=== PATIENT | female | born 1985 ===

== ENCOUNTER 2024-11-27 11:52 | Outpatient (CLI) | payer MEDICARE, MEDICAID, SELFPAY ==
--- OUTSIDE RECORDS SUMMARY | 2024-11-27 13:51 | XMS_ITS | Referral Summary ---
Author Organization [facility] Address [address] [place] [address] Care Team Providers Care Supervising Architect Name Role Phone Jaylon Boudreaux MD Unavailable [phone] Jaylon Boudreaux MD Primary Care Provider Encounters Date Type Department Care Team Description 10/18/2024 Orders Only [facility] Cardiology [address] [place] [address] Abdirahman Lindsay MD PhD 10/12/2024 2:00 PM [employer] Office Visit [facility] Dermatology [facility] [facility] [address] [place] [address] Rashawn Schmitz MD PhD Hidradenitis suppurativa (Primary Dx); Boils; Other eczema; Seborrheic dermatitis; Acne vulgaris from Last 3 Months Allergies No known active allergies Medications amLODIPine (NORVASC) 10 mg tablet Take 1 tablet (10 mg total) by mouth daily 30 tablet 0 Active Additional Information Patient not taking.Reported on 03/23/2024 lisinopriL (PRINIVIL,ZESTRI L) 40 mg tablet Take 1 tablet (40 mg total) by mouth daily 30 tablet 0 Active spironolactone (ALDACTONE) 25 mg tablet Take 1 tablet (25 mg total) by mouth daily 30 tablet 0 Active furosemide (LASIX) 40 mg tablet Take 1 tablet (40 mg total) by mouth 2 (two) times a day 60 tablet 11 0 Active clobetasoL (TEMOVATE) 0.05 % external solutionIndicati ons:Dermatosis of the Scalp Apply topically 2 (two) times a day 50 mL 0 Active Additional Information Patient not taking.Reported on 03/23/2024 hydrALAZINE (APRESOLINE) 25 mg tablet Take 1 tablet (25 mg total) by mouth 3 (three) times a day 90 tablet 0 Active Additional Information Patient taking differently: 50 mgoral2 times daily, Reported on 09/23/2023 chlorthalidone 25 mg tablet Take 1 tablet (25 mg total) by mouth daily 30 tablet 11 0 Active metFORMIN XR (GLUCOPHAGE XR) 500 mg 24 hr tablet Take by mouth nightly 2 Active ciprofloxacin (CILOXAN) 0.3 % ophthalmic solution Administer 1 drop into the left eye every 2 (two) hours Administer 1 drop, every 2 hours, while awake, for 2 days. Then 1 drop, every 4 hours, while awake, for the next 5 days. 5 mL 2 Active Additional Information Patient not taking.Reported on 03/23/2024 ibuprofen (ADVIL,MOTRIN) 600 mg tablet Take 1 tablet (600 mg total) by mouth 3 (three) times a day as needed for pain (migraine) 20 tablet 2 Active Additional Information Patient not taking.Reported on 03/23/2024 norethindrone (AYGESTIN) 5 mg tablet Take 1 tablet (5 mg total) by mouth daily Active pimecrolimus (ELIDEL) 1 % creamIndications :Steroid acne Apply topically daily (face). 30 g 6 4 Active Additional Information Patient not taking.Reported on 03/23/2024 clindamycin (CLEOCIN T) 1 % external solutionIndicati ons:Hidradenitis suppurativa Use on the back, chest, under the arms and in the groin 1-2 times daily. Ok to use on the face 60 mL 6 4 Active Additional Information Patient not taking.Reported on 03/23/2024 metoprolol XL (TOPROL-XL) 200 mg extended release tablet Take 0.5 tablets (100 mg total) by mouth 2 (two) times a day 30 tablet 11 4 Active Entresto 49-51 mg tablet 4 Active secukinumab (Cosentyx UnoReady Pen) 300 mg/2 mL (150 mg/mL) pen injector subcutaneous syringeIndicatio ns:Hidradenitis Suppurativa Inject 2 mL (300 mg total) under the skin every 28 (twenty-eight) days 2 mL 6 4 Active doxycycline (doxycycline hyclate) 100 mg capsuleIndicatio ns:Hidradenitis suppurativa Take 1 tablet/capsule (100 mg total) by mouth 2 (two) times a day Take with a full meal and a glass of water. 60 capsule 6 5 Active clindamycin (Cleocin T) 1 % lotionIndication s:Hidradenitis suppurativa,Acne vulgaris Apply topically every morning Face and armpits 60 mL 11 5 Active triamcinolone (KENALOG) 0.1 % ointmentIndicati ons:Other eczema Apply topically 2 (two) times a day as needed (arm rash) 60 g 5 Active Active Problems Problem Noted Date Diagnosed Date VT (ventricular tachycardia) 09/23/2023 Primary hypertension 09/23/2023 Supraventricular tachycardia, paroxysmal 022 NICM (nonischemic cardiomyopathy) 09/26/2020 Sinus tachycardia 09/26/2020 Acute on chronic heart failu re with reduced ejection fraction and diastolic dysfunction 05/29/2020 Social History Tobacco Use Types Packs/Day Years Used Date Smoking Tobacco: Former Smokeless Tobacco: Never Comments No Sex and Gender Information Value Date Recorded Sex Assigned at Not on file Legal Sex Female 8:22 PM [employer] Gender Identity Not on file Sexual Orientation Not on file Last Filed Vital Signs Vital Sign Reading Time Taken Comments Blood Pressure 136/85 03/23/2024 8:20 AM CDT Pulse 88 03/23/2024 8:20 AM CDT Temperature 37 C (98.6 F) 02/19/2023 6:59 PM CDT Respiratory Rate 20 02/19/2023 9:20 PM CDT Oxygen Saturation 99% 03/23/2024 8:20 AM CDT Inhaled Oxygen Concentration - - Weight 150.3 kg (331 lb 6.4 oz) 03/23/2024 8:20 AM CDT Height 170.2 cm (5' 7 ) 03/23/2024 8:20 AM CDT Body Mass Index 51.9 03/23/2024 8:20 AM CDT Plan of Treatment Not on file Medical Devices Implanted Type Area Information Systems Analyst Device Identifier Shelf Expiration Date Model / Serial / Lot [employer] D152 Dynagen Enduralife Easyview Hf Perspectiv 5.37x7.68cm 2 Chamber - [id number] - [id number] Implanted:Qty: 1 on 05/31/2020 by Christ Phillips MD at [facility] ICD Left: Heart [employer] 12/19/2020 D152 / [id number] / [employer] 0672 [place] 4-Front 59cm Active Fixation Lead Icd - [id number] - [id number] Implanted:Qty: 1 on 05/31/2020 by Christ Phillips MD at [facility] Lead Left: Heart [employer] 03/26/2022 0672 / [id number] / [employer] 4470 Fin[place] Ii Sterox Ez 1.7mm 52cm Bipolar Active Fixation Screw - [id number] - [id number] Implanted:Qty: 1 on 05/31/2020 by Christ Phillips MD at [facility] Lead Left: Heart [employer] 03/15/2022 4470 / [id number] / Procedures Procedure Name Priority Date/Time Associated Diagnosis Comments DEVICE CHECK - REMOTE Routine 10/18/2024 4:22 PM [employer] EGFR STAT 02/19/2023 7:09 PM CDT HEPATITIS PANEL, ACUTE Routine 05/16/2020 8:59 AM CDT HEMOGLOBIN A1C Routine 05/15/2020 7:52 AM CDT TNI WITH LIPID PANEL Routine 04/02/2020 12:49 AM CDT from Last 3 Months or Most Recently Relevant to Health Maintenance Results * DEVICE CHECK - REMOTE (10/18/2024 4:22 PM [employer]) Anatomical Region Laterality Modality Other 10/18/2024 4:22 PM [employer]ER Narrative 11/10/2024 7:12 AM [employer] Interpretation Summary: Battery and Leads (BL) Normal parameters noted on battery and lead(s) --- 8.5 years remaining (this is an estimate based on prior usage) Presenting Rhythm (CT) Atrial Sensing-Ventricular Sensing (-VS) --- rate 85-90 Arrhythmic events (AE) Atrial High-Rate Episode(s) identified --- 1 non-sustained AT episode Nonsustained VT event(s) identified --- One NS-VT episode. Duration: 1 seconds. Rate: 235 Transmission Information (TI) Device Summary Report Procedure Note Abdirahman Lindsay MD PhD - 11/10/2024 Interpretation Summary: Battery and Leads (BL) Normal parameters noted on battery and lead(s) --- 8.5 years remaining(this is an estimate based on prior usage) Presenting Rhythm (CT) Atrial Sensing-Ventricular Sensing (-VS) --- rate 85-90 Arrhythmic events (AE) Atrial High-Rate Episode(s) identified --- 1 non-sustained AT episode Nonsustained VT event(s) identified --- One NS-VT episode. Duration: 1seconds. Rate: 235 Transmission Information (TI) Device Summary Report Abdirahman Lindsay MD PhD [facility] C[facility]IAC SERVICES PROCEDURES Final Result * eGFR (02/19/2023 7:09 PM CDT) eGFR 66 mL/min/1. 73 m2 RONNIE MORA Comment: Interpretive Data Reference Interval Normal >/= 90 mL/min/1.73m2 Mildly decreased* 60 - 89 mL/min/1.73m2 Mildly to moderately decreased 45 - 59 mL/min/1.73m2 Moderately to severely decreased 30 - 44 mL/min/1.73m2 Severely decreased 15 - 29 mL/min/1.73m2 Kidney Failure < 15 mL/min/1.73m2 *Relative to young adult level Estimated glomerular filtration rate is determined by the 2020 CKD-EPI equation recommended by the National Kidney Foundation (A Unifying Approach to GFR Estimation: Recommendations of the NKF-ASK Task Force on Reassessing the Inclusion of Race in Diagnosing Kidney Disease, JASN 202). The CKD-EPI equation should not be used for patients with unstable renal function and has not been validated in children and those over 70. Current interpretive data was last reviewed 2021. Blood 02/19/2023 7:09 PM CDT 02/19/2023 7:12 PM CDT us Felton Frankel II, MD LAB BLOOD ORDERABLES Frannie macias Result RONNIE [address] [facility] Department [place] [address] * Hepatitis panel, acute (05/16/2020 8:59 AM CDT) HepBsAg NONREACT NONREACTIVE [facility][NOTE 3] Comment: Siemens CentaurXP using TAVO (chemiluminescent immunoassay) technology. NONREACTIVE: IgM antibodies to Hepatitis B Surface antigen not detected. REACTIVE: IgM antibodies to Hepatitis B Surface antigen detected. Reactive results will be confirmed by neutralization testing. HBsAb qn <3.10 mIU/mL [facility][NOTE 3] Comment: Siemens CentaurXP using TAVO (chemiluminescent immunoassay) technology. 9.99 IU/L or less.....NONREACTIVE: IgM antibodies to Hepatitis B Surface antibody are not detected. 10.00 IU/L or greater..REACTIVE: IgM antibodies to Hepatitis B Surface antibody are detected. Hep B core IgM NONREACT NONREACTIVE [facility] Comment: Siemens CentaurXP using TAVO (chemiluminescent immunoassay) technology. NONREACTIVE: IgM antibodies to Hepatitis B Core antigen not detected. EQUIVOCAL: IgM antibodies to Hepatitis B Core antigen may or may not be present. Obtain a new specimen and retest. REACTIVE: IgM antibodies to Hepatitis B Core antigen detected. Hep A IgM NONREACT NONREACTIVE [facility][NOTE 3] Comment: Siemens CentaurXP using TAVO (chemiluminescent immunoassay) technology. NONREACTIVE: IgM antibodies to Hepatitis A not detected. This does not exclude possibility of exposure to Hepatitis A or early acute infection. EQUIVOCAL:IgM antibodies to Hepatitis A may or may not be present. Suggest recollection and retest. REACTIVE: Antibodies to Hepatitis A detected. Hep C Ab NONREACT NONREACTIVE [facility][NOTE 3] Comment: Siemens [employer]XP using TAVO (chemiluminescent immunoassay) technology. NONREACTIVE: Antibodies to Hepatitis C not detected. This does not exclude early acute Hepatitis C infection, possibility of exposure to Hepatitis C, antibodies below detection limit, or to lack of antibody reactivity to the antigen used in this assay. EQUIVOCAL: Antibodies to Hepatitis C may or may not be present. Sample to be confirmed by real-time PCR method. REACTIVE: Antibodies to Hepatitis C detected.Sample to be confirmed by real-time PCR method. 05/16/2020 8:59 AM CDT 05/16/2020 9:13 AM CDT Narrative Resulting Agency Comment IN René Castro MD LAB MICROBIOLOGY - GENERAL O RDERABLES Final Result Performing Organization Address City/[facility]/ZIP Co de Phone Number [address] [phone] * (ABNORMAL) Hemoglobin A1c (05/15/2020 7:52 AM CDT) Hemoglobin A1c % 6.0(H) 4.0 - 5.6 % [facility][NOTE 3] Comment: ADA 2016 GUIDELINES: Initial Diagnostic Criteria HbA1c Result: Interpretation: <5.7% Normal 5.7-6.4% At risk for diabetes mellitus >=6.5% Consistent with diabetes mellitus Diabetes monitoring Target value (ADA Recommended) <7% 05/15/2020 7:52 AM CDT 05/15/2020 8:07 AM CDT Narrative Resulting Agency Comment DEBBIE René Castro MD LAB BLOOD ORDERABLES Final R esult Performing Organization Address City/[facility]/ZIP Co de Phone Number [address] [phone] * (ABNORMAL) TNI with LIPID PANEL (04/02/2020 12:49 AM CDT) Troponin I 1.690(HH) 0.000 - 0.300 ng/mL [facility][NOTE 3] Comment: CRITICAL VALUE CALLED and REPEATED. at:0117 04/02/20 by:Lien Nayak to:CASSIDY [id number] Reference using [place] Chemiluminescence Consistent with DE: Clinical and Laboratory correlation is recommended. Triglycerides 75 0 - 149 mg/dL [facility][NOTE 3] Comment: National Lipid Association/NCEP Guidelines: Normal < 150 mg/dL Borderline high 150-199 mg/dL High 200-499 mg/dL Very High >=500 mg/dL Cholesterol 115 0 - 199 mg/dL [facility][NOTE 3] Comment: National Lipid Association/NCEP Guidelines: Desirable < 200 mg/dL Borderline high: 200-239 mg/dL High Risk: >=240 mg/dL HDL Cholesterol 33 mg/dL MARI BETINA [facility] Comment: Reference Ranges: Males: >=40 mg/dL Females: >=50 mg/dL LDL Cholesterol, Calc 67 0 - 129 mg/dL [facility][NOTE 3] Comment: National Lipid Association/NCEP Guidelines: Optimal < 100 mg/dL Near Optimal 100-129 mg/dL Borderline high 130-159 mg/dL High >=160 mg/dL Cholesterol/HDL Ratio 3.5 [facility][NOTE 3] Comment: Optimal < 3.5:1 High > 5:1 04/02/2020 12:4 9 AM CDT 04/02/2020 12:52 AM CDT Narrative Resulting Agency Comment ER Rob Real DO LAB BLOOD ORDERABLES Final Res ult [facility][NOTE 3] [address] [phone] from Last 3 Months or Most Recently Relevant to Health Maintenance Insurance [facility] MEDICARE ADVANTAGE Advance Directives For more information, please contact: [phone] * Full Code (Latest Code Status on File) Date Activated Date Inactivated Comments 05/29/2020 7:19 AM 06/01/2020 10:58 PM Healthcare Agents on File Name Relationship Healthcare Agent Nasreenma mima Communication Sandy Leiva Mother Health Care Agent Care Teams Supervising Architect Relationship Specialty Start [place] [address] [place] [id number] PCP - General 02/28/20 [place] [address] [place] [id number] 01/30/20
--- OUTSIDE RECORDS SUMMARY | 2024-11-27 13:51 | XMS_ITS | Clinical Summary ---
Author Organization [facility] Address [address] [place] [address] Care Team Providers Care Tank Refinisher Name Role Phone Jaylon Boudreaux MD Unavailable Jaylon Boudreaux MD Primary Care Provider Allergies No known active allergies Medications amLODIPine [...] 2 (two) times a day 60 tablet 0 Active clobetasoL (TEMOVATE) 0.05 % external [...] by mouth daily 30 tablet 0 Active metFORMIN XR (GLUCOPHAGE XR) 500 [...] 2 (two) times a day 30 tablet 4 Active Entresto 49-51 mg tablet 4 [...] reduced ejection fraction and diastolic dysfunction 05/29/2020 Encounters Date Type Department Care Team Description 10/18/2024 Orders Only [facility] [address] [place] [address] Abdirahman Lindsay MD PhD 10/12/2024 2:00 PM SIMULATION SPECIALIST Office Visit [facility] [address] [place] [address] Rashawn Schmitz MD PhD Hidradenitis suppurativa (Primary Dx); Boils; Other eczema; Seborrheic dermatitis; Acne vulgaris from Last 3 Months Medical History Medical History Date Comments Hypertension CHF (congestive heart failure) ([facility]) Family History Medical History Relation Name Comments Heart attack Father Congestive Heart Failure Maternal Grandfather Relation Name Status Comments Father Maternal Grandfather Social History Tobacco Use Types Packs/Day Years Used Date Smoking Tobacco: Former Smokeless Tobacco: Never Comments No Sex and Gender Information Value Date Recorded Sex Assigned at Not on file Legal Sex Female 8:22 PM SIMULATION SPECIALIST Gender Identity Not on file Sexual Orientation Not on file Obstetrics History Last Filed Vital Signs Vital Sign Reading [...] 03/23/2024 8:20 AM CDT Plan of Treatment Health Maintenance Due Date Last Done Comments Albumin Creatinine Ratio, Urine 1983 Breast Cancer Screening-Mammogram 1983 Cervical Cancer Screening 1983 Depression Screening 1983 Dilated Eye Exam 1983 Foot Exam 1983 Varicella Vaccines (1 of 2 - 13+ 2-dose series) 1996 Hepatitis B Screening 2001 Regular Well Visit/Exam 18-64 2001 Pneumococcal vaccine <65 (1 of 2 - PCV) 2002 Hemoglobin A1C 11/12/2020 05/15/2020, 11/3 , 11/15/2014 Lipid Panel 04/02/2021 04/02/2020, 0702/2020, 09/30/2019, Additional history exists eGFR 02/20/2024 02/19/2023, 06/07, 11/26/2021 Influenza Vaccine (#1) 2024 DTaP/Tdap/Td Vaccine (7 - Td or Tdap) 05/20/2026 05/20/2016, 05/07/1998, 04/13/1989, Additional history exists Hepatitis C Screening Completed 05/16/2020 HPV Vaccines Aged Out No longer eligi ble based on patient's age to complete this topic Medical Devices Implanted Type Area Ticket Dispenser Changer Device Identifier Shelf Expiration Date Model / Serial / Lot ProteoTech D152 Dynagen Enduralife Easyview Hf Perspectiv 5.37x7.68cm 2 Chamber - [id number] - [id number] Implanted:Qty: 1 on 05/31/2020 by Christ Phillips MD at [facility] ICD Left: Heart [employer] Dorita 12/19/2020 D152 / [id number] / [employer] Dorita 0672 Mayo 4-Front 59cm Active Fixation Lead Icd - [id number] - [id number] Implanted:Qty: 1 on 05/31/2020 by Christ Phillips MD at [facility] Lead Left: Heart [employer] Dorita 03/26/2022 0672 / [id number] / [employer] Dorita 4470 Fineline Ii Sterox Ez 1.7mm 52cm Bipolar Active Fixation Screw - [id number] - [id number] Implanted:Qty: 1 on 05/31/2020 by Christ Phillips MD at [facility] Lead Left: Heart [employer] Dorita 03/15/2022 4470 / [id number] / Procedures Procedure Name Priority Date/Time Associated Diagnosis Comments DEVICE CHECK - REMOTE Routine 10/18/2024 4:22 PM SIMULATION SPECIALIST EGFR STAT 02/19/2023 7:09 PM CDT HEPATITIS PANEL, ACUTE Routine 05/16/2020 8:59 AM CDT HEMOGLOBIN A1C Routine 05/15/2020 7:52 AM CDT TNI WITH LIPID PANEL Routine 04/02/2020 12:49 AM CDT from Last 3 Months or Most Recently Relevant to Health Maintenance Results * DEVICE CHECK - REMOTE (10/18/2024 4:22 PM SIMULATION SPECIALIST) Anatomical Region Laterality Modality Other 10/18/2024 4:22 PM SIMULATION SPECIALIST Narrative 11/10/2024 7:12 AM SIMULATION SPECIALIST Interpretation Summary: Battery and Leads (BL) Normal parameters noted on battery and lead(s) --- 8.5 years remaining (this is an estimate based on prior usage) Presenting Rhythm (RI) Atrial Sensing-Ventricular Sensing (-VS) --- rate 85-90 [...] estimate based on prior usage) Presenting Rhythm (RI) Atrial Sensing-Ventricular Sensing (-VS) --- rate 85-90 [...] of Race in Diagnosing Kidney Disease, JASN 2020). The CKD-EPI equation should not be used for patients with unstable renal function and has not been validated in children and those over 70. Current interpretive data was last reviewed 2021. Blood 02/19/2023 7:09 PM CDT 02/19/2023 7:12 PM CDT us Felton Frankel II, MD LAB BLOOD ORDERABLES Frannie l Result RONNIE [address] [facility] Department [place] [address] * Hepatitis panel, acute (05/16/2020 8:59 AM CDT) HepBsAg NONREACT NONREACTIVE [facility] [place] Comment: Siemens CentaurXP using TAVO (chemiluminescent immunoassay) technology. NONREACTIVE: IgM antibodies to Hepatitis B Surface antigen not detected. REACTIVE: IgM antibodies to Hepatitis B Surface antigen detected. Reactive results will be confirmed by neutralization testing. HBsAb qn <3.10 mIU/mL [facility] [place] Comment: Siemens CentaurXP using TAVO (chemiluminescent immunoassay) technology. 9.99 IU/L or less.....NONREACTIVE: IgM antibodies to Hepatitis B Surface antibody are not detected. 10.00 IU/L or greater..REACTIVE: IgM antibodies to Hepatitis B Surface antibody are detected. Hep B core IgM NONREACT NONREACTIVE [facility] Comment: Siemens CentaurXP using TAVO (chemiluminescent immunoassay) technology. NONREACTIVE: IgM antibodies to Hepatitis B Core antigen not detected. EQUIVOCAL: IgM antibodies to Hepatitis B Core antigen may or may not be present. Obtain a new specimen and retest. REACTIVE: IgM antibodies to Hepatitis B Core antigen detected. Hep A IgM NONREACT NONREACTIVE [facility] [place] Comment: Siemens CentaurXP using TAVO (chemiluminescent immunoassay) technology. NONREACTIVE: IgM antibodies to Hepatitis A not detected. This does not exclude possibility of exposure to Hepatitis A or early acute infection. EQUIVOCAL:IgM antibodies to Hepatitis A may or may not be present. Suggest recollection and retest. REACTIVE: Antibodies to Hepatitis A detected. Hep C Ab NONREACT NONREACTIVE [facility] [place] Comment: Siemens CentaurXP using TAVO (chemiluminescent immunoassay) technology. NONREACTIVE: Antibodies [...] O RDERABLES Final Result Performing Organization Address [facility] [employer] Phone Number [address] [phone] * (ABNORMAL) Hemoglobin A1c (05/15/2020 7:52 AM CDT) Hemoglobin A1c % 6.0(H) 4.0 - 5.6 % [facility] [place] [place] Comment: ADA 2016 GUIDELINES: Initial Diagnostic Criteria HbA1c Result: Interpretation: <5.7% Normal 5.7-6.4% At risk for diabetes mellitus >=6.5% Consistent with diabetes mellitus Diabetes monitoring Target value (ADA Recommended) <7% 05/15/2020 7:52 AM CDT 05/15/2020 8:07 AM CDT Narrative Resulting Agency Comment DEBBIE René Castro MD LAB BLOOD ORDERABLES Final R esult Performing Organization Address [facility] [employer] Phone Number [address] [phone] * (ABNORMAL) TNI with LIPID PANEL (04/02/2020 12:49 AM CDT) Troponin I 1.690(HH) 0.000 - 0.300 ng/mL [facility] [place] Comment: CRITICAL VALUE CALLED and REPEATED. at:0117 04/02/20 by:Lien Nayak to:CASSIDY [id number] Reference using JEFFERSON Chemiluminescence Consistent with RI: Clinical and Laboratory correlation is recommended. Triglycerides 75 0 - 149 mg/dL [facility] [place] [place] Comment: National Lipid Association/NCEP Guidelines: Normal < 150 mg/dL Borderline high 150-199 mg/dL High 200-499 mg/dL Very High >=500 mg/dL Cholesterol 115 0 - 199 mg/dL [facility] [place] Comment: National Lipid Association/NCEP Guidelines: Desirable < 200 mg/dL Borderline high: 200-239 mg/dL High Risk: >=240 mg/dL HDL Cholesterol 33 mg/dL [facility] Comment: Reference Ranges: Males: >=40 mg/dL Females: >=50 mg/dL LDL Cholesterol, Calc 67 0 - 129 mg/dL [facility] [place] Comment: National Lipid Association/NCEP Guidelines: Optimal < 100 mg/dL Near Optimal 100-129 mg/dL Borderline high 130-159 mg/dL High >=160 mg/dL Cholesterol/HDL Ratio 3.5 [facility] [place] [place] Comment: Optimal < 3.5:1 High > 5:1 04/02/2020 12:4 9 AM CDT 04/02/2020 12:52 AM CDT Narrative Resulting Agency Comment ER us Rob Real DO LAB BLOOD ORDERABLES Final Res ult [facility] [place] [address] [place], [place] [id number] [place] [address] from Last 3 Months or Most Recently Relevant to Health Maintenance Insurance [facility] MEDICARE ADVANTAGE Advance Directives For more information, please contact: [phone] * Full Code (Latest Code Status on File) Date Activated Date Inactivated Comments 05/29/2020 7:19 AM 06/01/2020 10:58 PM Healthcare Agents on File Name Relationship Healthcare Agent [facility] p Communication Sandy Leiva Mother Health Care Agent Care Teams Tank Refinisher Relationship Specialty [place] [address] [place] [id number] PCP - General 02/28/20 [place] [address] [place] [address] 01/30/20
--- OUTSIDE RECORDS SUMMARY | 2024-11-27 13:52 | XMS_ITS | Encounter Summary ---
Author Organization [facility] Facility Care Team Providers Care Crime Scene Technician Name Role Phone Jaylon Boudreaux MD Primary Care Provider No, Physician Primary Care Provider [phone] Jaylon Boudreaux MD Unavailable [phone] Jaylon Boudreaux MD Primary Care Provider Encounter Details Date Type Department Care Team (Latest Contact Info) Description 12/13/2014 Orders Only [facility] ProviderLara MD [address] [place] [address] Social History Tobacco Use Types Packs/Day Years Used Date Smoking Tobacco: Never Assessed Comments Unknown Sex and Gender Information Value Date Recorded Sex Assigned at Not on file Legal Sex Female 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 Historical Provider [facility] CAMILO GALLOWAY Final Result documented in this encounter Visit Diagnoses Not on filedocumented in this encounter Additional Health Concerns Infection Onset Date Last Indicated Resolved Time COVID: Suspected 01/15/2021 01/15/2021 01/15/2021 6:24 PM CDT COVID: Suspected 02/19/2023 02/19/2023 02/19/2023 8:14 PM CDT documented as of this encounter Care Teams Crime Scene Technician Relationship Specialty Start [place] [address] [place] [id number] PCP - General 08/04/19 01/29/20 No, Physician PCP - General 01/30/20 02/27/20 Jaylon Boudreaux MD [address] [place] [address] PCP - General 02/28/20 Jaylon Boudreaux MD [address] [place] [address] 01/30/20 documented as of this encounter
--- OUTSIDE RECORDS SUMMARY | 2024-11-27 13:52 | XMS_ITS | Clinical Summary ---
Author Organization [facility] Address [facility] [place] [address] Care Team Providers Care Mold Tooler Name Role Phone Jaylon Boudreaux MD Primary Care Provider Allergies No known active allergies Medications spironolactone (ALDACTONE) 25 MG tablet Take 1 tablet (25 mg total) by mouth daily. 4 Active norethindrone (AYGESTIN) 5 MG tablet Take 1 tablet (5 mg total) by mouth daily. Active chlorthalidone (HYGROTEN) 25 MG tablet Take 1 tablet (25 mg total) by mouth daily. 4 Active lisinopril (PRINIVIL) 40 MG tablet Take 1 tablet (40 mg total) by mouth daily. DIRECTED 4 Active furosemide (LASIX) 40 MG tablet Take 1 tablet (40 mg total) by mouth 2 (two) times daily. 3 Active hydrALAZINE (APRESOLINE) 50 MG tablet Take 1 tablet (50 mg total) by mouth 2 (two) times a day. 4 Active STIMULANT LAXATIVE 8.6-50 MG tablet Take 2 tablets by mouth daily as needed for Constipation. 4 Active clindamycin (CLEOCIN T) 1 % lotion Apply topically 2 (two) times daily as needed (Skin Irritation). Apply to face Active metoprolol succinate ER (TOPROL-XL) 200 MG 24 hr tablet Take 0.5 tablets (100 mg total) by mouth 2 (two) times a day. Active oxyCODONE immediate release (ROXICODONE) 5 MG immediate release tabletIndicatio ns:Acute Pain < 7 Day Supply Take 1 tablet (5 mg total) by mouth every 6 (six) hours as needed for Pain. Indications: Acute Pain < 7 Day Supply 20 tablet Active Active Problems Problem Noted Date Diagnosed Date JANAY (acute kidney injury) 11/04/2023 Primary hypertension 09/23/2023 Supraventricular tachycardia, paroxysmal ([facility]) 01/16/2022 AICD discharge 09/28/2021 Ventricular tachycardia ([facility]) 2021 NICM (nonischemic cardiomyopathy) ([facility]) 09/26/2020 Acute on chronic heart failu re with reduced ejection fraction and diastolic dysfunction ([facility]) 05/29/2020 Social History Tobacco Use Types Packs/Day Years Used Date Smoking Tobacco: Never Smokeless Tobacco: Never Alcohol Use Standard Drinks/Week Comments Yes 0 (1 standard drink = 0.6 oz pur e alcohol) occasionally [facility] Utilities Answer Date Recorded In the past 12 months has Well [employer] gas, oil, or water Picateers threatened to shut off services in your home? No 12/02/2023 Humiliation, Afraid, Rape, and Kick questionnair e Answer Date Recorded Within the last year, have y ou been afraid of your partner or ex-partner? No 12/02/2023 Within the last year, have y ou been humiliated or emotionally abused in other ways by your partner or ex-partner? No Within the last year, have y ou been kicked, hit, slapped, or otherwise physically hurt by your partner or ex-partner? No 12/02/2023 Within the last year, have y ou been raped or forced to have any kind of sexual activity by your partner or ex-partner? No 12/02/2023 Overall Financial Resource Strain (CARDIA) Answe r Date Recorded How hard is it for you to pa y for the very basics like food, housing, medical care, and heating? Not hard at all 12/02/2023 Hunger Vital Sign Answer Date Recorded Within the past 12 months, y ou worried that your food would run out before you got the money to buy more. Never true 12/02/19 24 Within the past 12 months, t he food you bought just didn't last and you didn't have money to get more. Never true 12/02/2023 PRAPARE - Transportation Answer Date Re corded In the past 12 months, has l ack of transportation kept you from medical appointments or from getting medications? No 11/05 In the past 12 months, has l ack of transportation kept you from meetings, work, or from getting things needed for daily living? No 12/02/2023 Housing Stability Vital Sign Answer Raz e Recorded In the last 12 months, was t here a time when you were not able to pay the mortgage or rent on time? No 12/02/2023 In the last 12 months, how many places have you lived? 1 12/02/2023 In the last 12 months, was t here a time when you did not have a steady place to sleep or slept in a group home (including now)? No 12/02/2023 Comments No Sex and Gender Information Value Date Recorded Sex Assigned at Not on file Legal Sex Female 5:48 PM CDT Gender Identity Not on file Sexual Orientation Not on file Last Filed Vital Signs Vital Sign Reading Time Taken Comments Blood Pressure 119/90 07/18/2024 6:43 AM CONSULTING GROUP ANALYST Pulse 68 07/18/2024 6:43 AM CONSULTING GROUP ANALYST Temperature 36.4 C (97.5 F) 07/18/2024 6:43 AM CONSULTING GROUP ANALYST Respiratory Rate 12 07/18/2024 6:43 AM CONSULTING GROUP ANALYST Oxygen Saturation 98% 07/18/2024 6:43 AM CONSULTING GROUP ANALYST Inhaled Oxygen Concentration - - Weight 154 kg (339 lb 8.1 oz) 07/17/2024 11:31 P M CONSULTING GROUP ANALYST Height 170.2 cm (5' 7 ) 07/17/2024 11:31 PM CONSULTING GROUP ANALYST Body Mass Index 53.17 07/17/2024 11:31 PM CONSULTING GROUP ANALYST Plan of Treatment Health Maintenance Due Date Last Done Comments Cervical Cancer Screening Pap Smear (Age 30 to 64) Every 3 Years 1983 Annual Physical 1986 Hepatitis B Vaccines (1 of 3 - 19+ 3-dose series) 2002 Cervical Cancer Screening Pap with HPV Testing (Age 30 to 64) Every 5 Years 2013 Cervical Cancer Screening with HPV 2013 Mammogram Screening 2023 COVID-19 Vaccine ( season) 2024 12/29/2021, 10/07/2021 Influenza Adult (#1) 2024 DTaP, Tdap and Td Vaccines (7 - Td or Tdap) 05/20/2026 05/20/2016, 05/07/1998, 04/13/1989, Additional history exists Pneumococcal Vaccine: Pediatrics (0 to 5 Years) and At-Risk Patients (6 to 64 Years) Completed 10/04/2023 Hepatitis C Completed 12/03/2023, 12/01/2023 HPV Vaccines Aged Out No longer eligi ble based on patient's age to complete this topic Meningococcal B Vaccine Aged Out No l onger eligible based on patient's age to complete this topic Meningococcal Vaccine Aged Out No tejas sasha eligible based on patient's age to complete this topic RSV Immunizations Under 20 Months Aged Out No longer eligible based on patient's age to complete this topic Goals Goal Patient Goal Type Associated Problems Recent Progress Patient-Stated? Author Family - family caregiver with be involved in care transitions and discharge planning Lifestyle No Tati Ugarte VEGETABLE SORTERlandscape artist - family caregiver with be involved in care transitions and discharge planning Lifestyle No Tati Ugarte VEGETABLE SORTERlandscape artist - family caregiver with be involved in care transitions and discharge planning Lifestyle No Tati Ugarte VEGETABLE SORTER Procedures Procedure Name Priority Date/Time Associated Diagnosis Comments HEPATITIS C ANTIBODY Routine 12/03/2023 6:54 AM CDT from Last 3 Months or Most Recently Relevant to Health Maintenance Results * HEPATITIS C ANTIBODY W/REFLEX (12/03/2023 6:54 AM CDT) HEPATITIS C AB NON-REACTI VE NON-REACTI VE 12/03/2023 8:06 AM CDT [facility] 12/03/2023 6:54 AM CDT us Gregory Franks MD LABORATORY Final Result [facility] [address] [place] [address], from Last 3 Months or Most Recently Relevant to Health Maintenance Insurance [facility] [employer] [place] [address] MEDICAID Advance Directives Documents on File Type Date Recorded Patient Technology Engineer Expl anation Advance Directives and Livin g Will 11/26/2023 1:32 PM * Full Code (Latest Code Status on File) Date Activated Date Inactivated Comments 12/01/2023 5:44 PM 12/04/2023 2:29 PM * Full Code Date Activated Date Inactivated Comments 11/04/2023 11:45 PM 11/08/2023 2:58 PM Healthcare Agents on File Name Relationship Healthcare Agent Relationshi p Communication Willard Lama Jr. Son Health Care Agent Care Teams Mold Tooler Relationship Specialty Start Date End Date Jaylon Boudreaux MD [address] [place] [address] PCP - General INTERNAL MEDICINE 11/04/23
--- OUTSIDE RECORDS SUMMARY | 2024-11-27 13:52 | XMS_ITS | Clinical Summary ---
Author Organization [facility] Address [address] [place] [address] Phone Care Team Providers Care Oil Program Compliance Specialist Name Role Phone Unavailable Primary Care Provider Unavailabl e Allergies No known active allergies Medications Medication Sig Dispensed Refills Start Date End Date Status chlorthalidone (HYGROTON) 25 MG tablet Take 25 mg by mouth 1 (one) time each day Active furosemide (LASIX) 40 MG tablet Take 40 mg by mouth in the morning and 40 mg in the evening. Active hydrALAZINE (APRESOLINE) 50 MG tablet Take 50 mg by mouth in the morning and 50 mg in the evening and 50 mg before bedtime. Active lisinopril (PRINIVIL) 40 MG tablet Take 40 mg by mouth 1 (one) time each day Active norethindrone (AYGESTIN) 5 MG tablet Take 5 mg by mouth 1 (one) time each day Active spironolactone (ALDACTONE) 25 MG tablet Take 25 mg by mouth 1 (one) time each day Active doxycycline (ADOXA) 100 MG tablet Take 100 mg by mouth in the morning and 100 mg in the evening. Take with a full glass of water and do not lie down for at least 30 minutes after. Active metroNIDAZOLE (FLAGYL) 250 MG tablet Take 250 mg by mouth in the morning and 250 mg at noon and 250 mg in the evening and 250 mg before bedtime. Active omeprazole (PriLOSEC) [address] capsule Take 20 mg by mouth in the morning and 20 mg in the evening. Active bismuth subsalicylate (PEPTO BISMOL) 262 MG chewable tablet Chew 524 mg 4 (four) times a day (before meals and nightly) Active Active Problems Problem Noted Date Diagnosed Date Flank pain 12/06/2023 Acute nontraumatic kidney injury 12/06/2023 Chronic kidney disease 12/06/2023 Essential hypertension 12/06/2023 Nonischemic congestive cardiomyopathy 12/06/2023 Type 2 diabetes mellitus 12/06/2023 Thrombocytosis 12/06/2023 Microscopic hematuria 12/06/2023 Family History Medical History Relation Comments Diabetes Father Hypertension Father Uterine leiomyoma Mother Diabetes Paternal Grandmother Hypertension Paternal Grandmother Relation Status Comments Father Mother Paternal Grandmother Alive Social History Tobacco Use Types Packs/Day Years Used Date Smoking Tobacco: Every Day Cigarettes 0.5 22.2 Started: 2002 Smokeless Tobacco: Never Tobacco Cessation:Ready to Q uit: Not Asked Alcohol Use Standard Drinks/Week Comments Yes 0 (1 standard drink = 0.6 oz pur e alcohol) Occasional for 25+ years Sex and Gender Information Value Date Recorded Sex Assigned at Not on file Gender Identity Not on file Sexual Orientation Not on file Last Filed Vital Signs Vital Sign Reading Time Taken Comments Blood Pressure 131/104 12/22/2023 1:24 PM CDT Pulse 85 12/22/2023 1:24 PM CDT Temperature - - Respiratory Rate - - Oxygen Saturation - - Inhaled Oxygen Concentration - - Weight 149 kg (328 lb) 12/22/2023 1:24 PM CDT Height 170.2 cm (5' 7 ) 12/22/2023 1:24 PM CDT Body Mass Index 51.37 12/22/2023 1:24 PM CDT Plan of Treatment Health Maintenance Due Date Last Done Comments Diabetic Foot Exam 1993 Ophthalmology Exam 1993 Pneumococcal PPSV23 Highest Risk Adult (1 of 3 - PCV13 ) 2002 Influenza Vaccine (#1) 2024
--- OUTSIDE RECORDS SUMMARY | 2024-11-27 13:52 | XMS_ITS | Data Portability ---
Author Organization [facility] Art[place] Goldman Address [address] [place] [address] Care Team Providers Care Proof Technician Name Role Phone JAYLON LOPEZ Primary Care Provider [phone] SALMA BILL Valance Cutter SULTAN ARTIE Seed Analyst STORMY CORTES Manager Of Global Unavailable Assessment Encounter Date Assessment Date Assessment LastModified by Organization Details LastModified Time 02/29/2024 02/29/2024 Labs completed o n 02/17/2024 Sodium 137, Potassium 4.3, Chloride 100, Co2 22, BUN 31, Creatinine 1.57, Glucose 239, Calcium 9.9 Laboratories performed on 12/17/2023 glucose 24, BUN 31, creatinine 1.9, sodium 135 potassium 4.8, chloride 98, bicarbonate 20 calcium 10.1, phosphorus 5.1, albumin 4.3, BNP 57.9, lipase was 48 labs completed on 11/18/2023 Sodium 134, Potassium 4.9, Chloride 100, BUN(58), Co2 19, Creatinine 2.29, Glucose 129, Calcium 9.7, Cholesterol 124, Trig 103, HDL 32, LDL 80 ess labs 10/11/2023 triglycerides 103 cholesterol 124, LDL 80, HDL 32 Labs completed on 10/04/2023 WBC 12.0, Hgb 12.3, Platelets 434 ECG done on 12/23/2023 shows sinus rhythm with left bundle branch block ASSESSMENT 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 on 03/11/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 in some views on echocardiography, not candidate for cardiac MRI in 2 to AICD to evaluate for noncompaction,most recent echocardiogram done on 12/02/2023 showed an ejection fraction of 20 to 25% currently [place] Heart Association class II-III symptoms, on Entresto, spironolactone, beta-karthikeyan, not candidate for Jardiance/Farxiga she had significant diarrhea nausea and abdominal symptoms with these agents Status post AICD placement for primary prevention but did have 2 episodes of ventricular tachycardia in 2021 followed by [facility] EP, no defibrillation since 2021 History of hypertension, currently controlled history of congestive heart failure with reduced ejection fraction Marked biatrial enlargement he has not had any more shocks from the device Left Bundle branch block. Since Mild pulmonary hypertension with an RVSP of 47 mmHg Mild aortic regurgitation Mild mitral regurgitation Diastolic dysfunction grade 3 chronic kidney disease followed by Dr. Franks of the nephrology service Abdominal pain, defer to her primary md Intolerance to Jardiance with nausea, abdominal pain and diarrhea. History of hyperlipidemia but taken off of rosuvastatin in november due to some abdominal pain. Chronic kidney disease follows with [facility] of the Nephrology Service Plan I recommend a low-sodium diet. heart failure diet. I would like her to to check a lipid profile to be sure that she does not have significant hyperlipidemia that would require recently her statin. I recommend we continue Entresto 49/51 mg p.o. b.i.d., chlorthalidone 25 mg daily, hydralazine 50 mg every 8 hours, Lasix 40 mg p.o. twice daily, metoprolol succinate 200 mg daily, spironolactone 25 mg daily. 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 Told to avoid all NSAIDs. She is to continue to follow-up with [facility] electrophysiology for management of her AICD. I will have her return in 6 months' time and obtain a fasting lipid profile, complete metabolic profile prior to her follow-up visit. I would like her to repeat a BMP in 3 months' time. I asked her to return sooner if she is any cardiac issues or problems. CARDIAC TESTING ECHOCARDIOGRAM 12/02/2023 which showed left ventricular cavity size is severely enlarged, left-ventricular systolic function is severely reduced estimated left-ventricular systolic ejection fraction is 20 to 25% there is moderate LVH, diastolic dysfunction grade 1 global hypokinesis with minor regional variation right ventricular cavity size and function are normal left atrial size is normal right atrial size is normal mild mitral regurgitation trace of tricuspid regurgitation RVSP is 35 mmHg ECHOCARDIOGRAM 05/28/2020 done over at [facility] LV cavity size is markedly dilated eccentric LV hypertrophy severe global reduction in ejection fraction with a left ventricular ejection fraction of 18% some views suggest noncompaction cardiomyopathy, diastolic dysfunction grade 3 characterized by elevated mean left atrial pressure. Mild aortic regurgitation, mild mitral regurgitation, reduced LV stroke-volume and cardiac output dilated inferior vena cava, mild pulmonary hypertension, reduced global left ocular longitudinal function and strain marked biatrial enlargement marked RV dilation. CARDIAC CATHETERIZATION 03/11/2020 which showed no significant angiographic coronary artery disease elevated left-ventricular end-diastolic pressure with severe left-ventricular systolic dysfunction based on her echocardiogram. Not available 02/29/2024 15:55:08 10/26/2024 10/26/2024 Labs completed 10/19/2024 Triglycerides 157, Cholesterol 176, HDL 28, LDL 125, Sodium 136, Potassium 4.3, Chloride 97, Co2 28, BUN 19, Creatinine 1.33, eGFR 52, Glucose 340, Calcium 9.3, Bilirubin 0.2, AST 13, ALT 21, Protein 7.6, Albumin 4, Alk phos 61 Labs completed 05/31/2024 Cholesterol 181, Triglycerides 167, HDL 27, LDL 124, TSH 4.040 Labs completed 04/05/2024 Triglycerides 210, Cholesterol 167, LDL 99, HDL 34 Labs completed on 02/17/2024 Sodium 137, Potassium 4.3, Chloride 100, Co2 22, BUN 31, Creatinine 1.57, Glucose 239, Calcium 9.9 Laboratories performed on 12/17/2023 glucose 24, BUN 31, creatinine 1.9, sodium 135 potassium 4.8, chloride 98, bicarbonate 20 calcium 10.1, phosphorus 5.1, albumin 4.3, BNP 57.9, lipase was 48 labs completed on 11/18/2023 Sodium 134, Potassium 4.9, Chloride 100, BUN(58), Co2 19, Creatinine 2.29, Glucose 129, Calcium 9.7, Cholesterol 124, Trig 103, HDL 32, LDL 80 labs 10/11/2023 triglycerides 103 cholesterol 124, LDL 80, HDL 32 Labs completed on 10/04/2023 WBC 12.0, Hgb 12.3, Platelets 434 ECG done on 12/23/2023 shows sinus rhythm with left bundle branch block ASSESSMENT 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 on 03/11/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 in some views on echocardiography, not candidate for cardiac MRI in 2 to AICD to evaluate for noncompaction,most recent echocardiogram done on 12/02/2023 showed an ejection fraction of 20 to 25% currently [place] Heart Association class II-III symptoms, on Entresto, spironolactone, beta-karthikeyan, not candidate for Jardiance/Farxiga she had significant diarrhea, nausea and abdominal symptoms with these agents, [place] heart Association class 2 to 3 Status post AICD placement for primary prevention but did have 2 episodes of ventricular tachycardia in 2021 followed by [facility] EP, no defibrillation since 2021 History of hypertension, currently controlled history of congestive heart failure with reduced ejection fraction Marked biatrial enlargement he has not had any more shocks from the device Left Bundle branch block. Since Mild pulmonary hypertension with an RVSP of 47 mmHg Mild aortic regurgitation Mild mitral regurgitation Diastolic dysfunction grade 3 chronic kidney disease followed by Dr. Franks of the nephrology service Abdominal pain, defer to her primary md Intolerance to Jardiance with nausea, abdominal pain and diarrhea. History of hyperlipidemia but taken off of rosuvastatin in november due to some abdominal pain. Chronic kidney disease follows with [facility] the Nephrology Service He has not followed up with Nephrology of late but her creatinine has improved down from 1.9 down to 1.33. Plan I recommend a low-sodium diet. heart failure diet. I would like to add imdur to her nitrates due to her cardiomyopathy. If she continues to have dyspnea with exertion will consider adding verquvo. I recommend she continue Entresto 49/51 mg p.o. b.i.d., chlorthalidone 25 mg daily, hydralazine 50 mg every 8 hours, Lasix 40 mg p.o. twice daily, metoprolol succinate 200 mg daily, spironolactone 25 mg daily. . I recommend that she do follow up with her fire dispatcher Dr.. Franks. I reminded her to avoid all NSAIDs. She is to continue to follow-up with [facility] electrophysiology for management of her AICD. I would like her to return in 3 months' time and get a 2D echo Doppler and a BMP prior to her follow-up visit. I asked her to return sooner if she is any cardiac issues or problems. CARDIAC TESTING ECHOCARDIOGRAM 12/02/2023 which showed left ventricular cavity size is severely enlarged, left-ventricular systolic function is severely reduced estimated left-ventricular systolic ejection fraction is 20 to 25% there is moderate LVH, diastolic dysfunction grade 1 global hypokinesis with minor regional variation right ventricular cavity size and function are normal left atrial size is normal right atrial size is normal mild mitral regurgitation trace of tricuspid regurgitation RVSP is 35 mmHg ECHOCARDIOGRAM 05/28/2020 done over at [facility] LV cavity size is markedly dilated eccentric LV hypertrophy severe global reduction in ejection fraction with a left ventricular ejection fraction of 18% some views suggest noncompaction cardiomyopathy, diastolic dysfunction grade 3 characterized by elevated mean left atrial pressure. Mild aortic regurgitation, mild mitral regurgitation, reduced LV stroke-volume and cardiac output dilated inferior vena cava, mild pulmonary hypertension, reduced global left ocular longitudinal function and strain marked biatrial enlargement marked RV dilation. CARDIAC CATHETERIZATION 03/11/2020 which showed no significant angiographic coronary artery disease elevated left-ventricular end-diastolic pressure with severe left-ventricular systolic dysfunction based on her echocardiogram. Not available 10/26/2024 12:30:49 11/06/2024 11/06/2024 Here for vaginal discharge, irritation and odor for past several weeks [email or web address] Not available 11/06/2024 13:18:14 Plan of Treatment Reminders Order Date Submit Date Provider Last Modified By Organization Details Last Modified Time Details Appointments ANY 15 2024 10:15A John Bahena MD Not available Not available Not available ANY 15 2024 01:00P John Pierson MD Not available Not available Not available Lab HbA1c (hemoglo bin A1c), blood 2024 025 [email or web address] [facility] (Lab), [address] [place], [address], 11/22/2024 11:46:47 CBC 2024 025 [email or web address] [facility] (Lab), [address], [place], [address], 11/22/2024 11:46:47 CMP, serum or plasma 2024 025 [email or web address] [facility] (Lab), [address] [place], [address], 11/22/2024 11:46:47 HIV 1 + 2, meaningf ul use set 2024 025 [facility] (Lab), [address], [place], [address], 11/06/2024 14:25:33 unlisted lab - HCV antibody rfx to quant PCR 2024 025 [facility] (Lab), [address], [place], [address], 11/06/2024 14:25:33 unlisted lab - hepatiti s B core Ab w/reflex 2024 025 [facility] (Lab), [address], [place], [address], 11/06/2024 14:25:33 RPR (rapid plasma reagin), serum 2024 025 [facility] (Lab), [address], [place], [address], 11/06/2024 14:25:33 urinalys is, dipstick 2024 025 [email or web address] In-Office Order, Internal Use Only DO Not Attach Compendium DO Not Attach Compendium, Do Not Delete/merge, [id number] 11/06/2024 13:18:35 vaginal pathogen s panel, RENÉ+prob e, vaginal fluid 2024 025 EBONI [facility], [address], [place], [address], 11/08/2024 06:16:36 culture, urine 2024 025 EBONI [facility], [address], [place], [address], 11/08/2024 08:22:35 BMP, serum or plasma 2024 025 [email or web address] [facility] (Lab), [address], [place], [address], 10/26/2024 12:33:48 lipid panel, serum 2023 024 [email or web address] [facility], [address], [address], [place], [address], 06/13/2024 14:32:34 HbA1c (hemoglo bin A1c), blood 2023 024 [facility], [address] [place] [address], [address], [place], [address], 06/08/2024 14:32:15 vitamin B12, serum 2023 024 [facility], [address] [place] [address], [address], [place], [address], 06/01/2024 11:17:02 TSH, ultra-se nsitive, serum 2023 024 [facility], [address] [place] [address], [address], [place], [address], 06/01/2024 11:17:02 lipid panel, serum 2023 024 [facility], [address], [place], [address], 03/21/2024 07:57:14 BMP, serum or plasma 2023 024 [facility], [address], [place], [address], 06/21/2024 07:41:44 lipid panel, serum 2023 024 [facility], [address], [place], [address], 09/15/2024 08:36:09 CMP, serum or plasma [address] [facility] Department, [address] [place], [address], 09/15/2024 08:36:09 Referral dermatol ogist referral 2024 025 [email or web address] Ashish English MD, [address] , [place], [address], 11/22/2024 11:46:47 gynecolo gist referral 2024 025 [email or web address] Reji Bach, [address] [place] [address] , [place], [address], 11/22/2024 11:46:47 dermatol ogist referral - psoriasi s 2024 025 [email or web address] Ashish English MD, [address] [address] , [place], [address], 11/22/2024 11:46:47 pain manageme nt referral 2023 024 [facility], [address], [place], [address], 07/14/2024 16:05:23 Procedures None recorded . Surgeries None recorded . Imaging MAMMO, screenin g, bilatera l 2024 025 [email or web address] [facility] (Rad), [address] [place], [address], 11/22/2024 11:46:47 US, echocard iogram, transtho racic, complete , w/ color flow [address] [facility], [address], [place], [address], 11/09/2024 07:29:38 MRI, lumbar spine, w/o contrast - Chronic lower back pain, s/p physical therapy 02/2022 024 [email or web address] [facility], [address], [place], [address], 06/09/2024 13:35:13 electrom yogram + nerve conducti on study - UE neuropat hy 2023 024 [facility] (Cardiology & Emg), [address] [place] [address], [address], 11/13/2024 14:12:28 Medication Orders norethin drone acetate 5 mg tablet 2024 025 [facility], [address] [place], [address], 11/06/2024 13:00:36 isosorbi de mononitr ate ER 30 mg tablet,e xtended release 24 hr 2024 025 [id number], [address] [place], [id number], 10/26/2024 12:33:57 Patient TargetsNo targets recorded. Patient Instructions Encounter Date Encounter Id Patient Instructions Last Modified By Organization Details Last Modified Time 05/04/2024 [id number] neuropathic pain : care instructions oajao Not available 05/04/2024 15:08:42 Labs (Old and ne w orders) Open MRI EMG/NCS Pain management Follow up in 6 weeks [email or web address] Not available 05/04/2024 15:20:00 Detailed visit oajao Not available 0 05/04/2024 20:02:30 11/06/2024 [id number] Attending Physician Attestation S: 39 yo F here for dark brown discharge x1 month. Last sexual intercourse 1 month ago. No douching, no new detergents, etc. Has irritation to vaginal area as well. Desires STI testing. O: BP 126/94. HR 110. BMI 54.1. Speculum exam shows whitish discharge with fishy odor. No bleeding or brown discharge. No adnexal or suprapubic tenderness. Inguinal HS without open sores. A/P: Brown vaginal discharge - F/u NuSwab. If not improved, consider 1 week break from norethindrone to allow full withdrawal bleed, then restart norethindrone. STI testing - Serum labs ordered. Contraception - Norethindrone refilled. {{I did not personally see or examine the patient with the resident. I was physically present to provide indirect supervision through entire encounter.* I personally saw the patient with the resident.}} Plan discussed with resident as documented in my brief note above. Stormy Cortes MD Not available 11/06/2024 13:11:51 11/22/2024 [id number] A healthy lifestyle: care instructions [email or web address] Not available 11/22/2024 11:46:47 Reason for Referral Pain Management Referral for Chronic pain syndrome Chronic back pain Referring Physician: Jaylon Lopez, Internal Medicine, Encounter Date: 05/04/2024 Warp Knitter Referral for Sc reening for malignant neoplasm of cervix Referring Physician: Roger Pierson [facility], Encounter Date: 11/22/2024 Valance Cutter Referral for E czema Referring Physician: Roger Pierson [facility], Encounter Date: 11/22/2024 Valance Cutter Referral for P soriasis psoriasis Referring Physician: Roger Pierson [facility], Encounter Date: 11/22/2024 Results Created Date Observation Date Name Description Value Unit Range Abnormal Flag Note LastModifiedBy Organization Detail LastModifiedTime 02/17/2002/17/2024 BASIC METAB OLIC PANEL sodium 137 mmol/ L 134-14 4 normal Not Available [facility] (Lab) [address] [place], [address], 02/17/2024 17:29:17 02/17/2002/17/2024 BASIC METAB OLIC PANEL potassium 4.3 mmol/ L 3.5-5. 2 Not Available [facility] (Lab) [address] [place], [address], 02/17/2024 17:29:17 02/17/2002/1602/17/2024 BASIC METAB OLIC PANEL chloride 100 mmol/ L 96-106 normal Not Available [facility] (Lab) [address], [place], [address], 02/17/2024 17:29:17 02/17/20 24 02/17/2024 BASIC METAB OLIC PANEL carbon dioxide 22 mmol/ L 20-29 normal Not Available [facility] (Lab) [address], [place], [address], 02/17/2024 17:29:17 02/17/20 24 02/17/2024 BASIC METAB OLIC PANEL anion gap 20.0 mmol/ L Not Available [facility] (Lab) [address], [place], [address], 02/17/2024 17:29:17 02/17/20 24 02/17/2024 BASIC METAB OLIC PANEL blood urea nitrogen 31 mg/dL 6-24 high Not Available [facility] ([facility]) [address], [place], [address], 02/17/2024 17:29:17 02/17/20 24 02/17/2024 BASIC METAB OLIC PANEL creatinine 1.57 mg/dL 0.76-1 .27 high Not Available [facility] ([facility]) [address], [place], [address], 02/17/2024 17:29:17 02/17/20 24 02/17/2024 BASIC METAB OLIC PANEL glomerular filtration rate 43 mL/mi n/1 Not Available [facility] ([facility]) [address], [place], [address], 02/17/2024 17:29:17 02/17/20 24 02/17/2024 BASIC METAB OLIC PANEL BUN creatinine ratio 19 9-23 normal Not Available [facility]) [address], [place], [address], 02/17/2024 17:29:17 02/17/20 24 02/17/2024 BASIC METAB OLIC PANEL glucose 239 mg/dL 70-99 high Not Available [facility]) [address] [place], [address], 02/17/2024 17:29:17 02/17/20 24 02/17/2024 BASIC METAB OLIC PANEL osmolality calculated 288 275-29 5 normal Not Available [facility] (Lab) [address] [place], [address], 02/17/2024 17:29:17 02/17/20 24 02/17/2024 BASIC METAB OLIC PANEL calcium 9.9 mg/dL 8.7-10 .2 normal Not Available [facility] ([facility]) [address] [facility], [place], [address], 02/17/2024 17:29:17 04/05/20 24 04/05/2024 LIPID PANEL triglyceride s 210 mg/dL 0-149 high Not Available [facility]) [address] [facility], [place], [address], 04/05/2024 16:35:31 04/05/20 24 04/05/2024 LIPID PANEL cholesterol 167 mg/dL 100-19 9 normal Not Available [facility] ([facility]) [address], [place], [address], 04/05/2024 16:35:31 04/05/20 24 04/05/2024 LIPID PANEL LDL cholesterol 99 mg/dL 0-99 normal Not Available [facility] ([facility]) [address] [place], [address], 04/05/2024 16:35:31 04/05/20 24 04/05/2024 LIPID PANEL VLDL cholesterol (calc) 42 mg/dL 5-40 high Not Available [facility] ([facility]) [address] [place], [address], 04/05/2024 16:35:31 04/05/20 24 04/05/2024 LIPID PANEL HDL cholesterol 34 mg/dL 40-999 low Not Available [facility] ([facility]) [address] [place], [address], 04/05/2024 16:35:31 04/05/20 24 04/05/2024 LIPID PANEL LDL HDL ratio 2.9 0-3.2 normal Not Available [facility] ([facility]) [address], [place], [address], 04/05/2024 16:35:31 04/05/20 24 04/05/2024 LIPID PANEL chol HDL ratio 5.0 mg/dL 0-4.4 high Not Available [facility] (Lab) [address] [place], [address], 04/05/2024 16:35:31 05/31/20 24 05/31/2024 THYRO ID STIMU LATIN G HORMO NE thyroid stimulating hormone 4.040 uIU/m L 0.450- 4.500 normal Not Available [facility] (Lab) [address] [place], [address], 05/31/2024 15:53:28 05/31/20 24 06/01/2024 HEMOG LOBIN A1C hemoglobin A1C 11.5 % 4.8-5. 6 abnormal Predi abete s: 5.7 - 6.4 Diabe devonte: >6.4 Glyce chris contr ol for adult s with diabe devonte: <7.0 Perfo rmed at: 01 - [facility] n [address] [facility] [place] [address] 1262 Lab Direc tor: Brandon [email or web address] PhD, Phone : [phone] Not Available [facility] ([facility]) [address] [place], [address], 06/01/2024 07:12:13 05/31/20 24 06/01/2024 VITAM IN B12 vitamin B12 335 pg/mL 232-12 45 Perfo rmed at: 01 - [facility] [address] [facility] [place] [address] Lab Direc tor: Brandon [email or web address] PhD, Phone : [phone] Not Available [facility] (Lab) [address] [facility], [place], [address], 06/06/2024 10:18:17 05/31/20 24 06/06/2024 LIPID PANEL cholesterol, total 181 Not Available [facility] (Lab) [address] [facility], [place], [address], 06/06/2024 10:18:18 05/31/20 24 06/06/2024 LIPID PANEL triglyceride s 167 Not Available [facility] ([facility]) [address] [facility], [place], [address], 06/06/2024 10:18:18 05/31/20 24 06/06/2024 LIPID PANEL HDL cholesterol 27 Not Available [facility] ([facility]) [address] [facility], [place], [address], 06/06/2024 10:18:18 05/31/20 24 06/06/2024 LIPID PANEL VLDL cholesterol miguelina 30 Not Available [facility] ([facility]) [address] [facility], [place], [address], 06/06/2024 10:18:18 05/31/20 24 06/06/2024 LIPID PANEL LDL chol calc (nih) 124 Not Available [facility] ([facility]) [address], [place], [address], 06/06/2024 10:18:18 05/31/20 24 06/06/2024 LIPID PANEL comment: TESTI NG PERFO RMED AT [facility]. SEE SCANN ED RESUL TS FOR VARIF ICATI ON. Not Available [facility] (Lab) [address] [place], [address], 06/06/2024 10:18:18 10/19/19 25 10/19/2024 COMPR EHENS BELGICA METAB OLIC PANEL sodium 136 mmol/ L 134-14 4 normal Not Available [facility] (Lab) [address] [place], [address], 10/19/2024 13:44:11 02/13/20 25 10/19/2024 COMPR EHENS BELGICA METAB OLIC PANEL potassium 4.3 mmol/ L 3.5-5. 2 normal Not Available [facility] ([facility]) [address] [place], [address], 10/19/2024 13:44:11 10/19/19 25 10/19/2024 COMPR EHENS BELGICA METAB OLIC PANEL chloride 97 mmol/ L 96-106 normal Not Available [facility] ([facility]) [address] [place], [address], 10/19/2024 13:44:11 10/19/19 25 10/19/2024 COMPR EHENS BELGICA METAB OLIC PANEL carbon dioxide 28 mmol/ L 20-29 normal Not Available [facility] ([facility]) [address] [place], [address], 10/19/2024 13:44:11 10/19/19 25 10/19/2024 COMPR EHENS BELGICA METAB OLIC PANEL anion gap 15.0 mmol/ L Not Available [facility] ([facility]) [address] [place], [address], 10/19/2024 13:44:11 10/19/19 25 10/19/2024 COMPR EHENS BELGICA METAB OLIC PANEL blood urea nitrogen 19 mg/dL 6-24 normal Not Available [facility] ([facility]) [address] [place], [address], 10/19/2024 13:44:11 10/19/19 25 10/19/2024 COMPR EHENS BELGICA METAB OLIC PANEL creatinine 1.33 mg/dL 0.76-1 .27 high Not Available [facility] (Lab) [address] [place], [address], 10/19/2024 13:44:11 10/19/19 25 10/19/2024 COMPR EHENS BELGICA METAB OLIC PANEL glomerular filtration rate 52 mL/mi n/1 Not Available [facility] (Lab) [address] [place], [address], 10/19/2024 13:44:11 10/19/19 25 10/19/2024 COMPR EHENS BELGICA METAB OLIC PANEL BUN creatinine ratio 14 9-23 normal Not Available [facility] (Lab) [address] [place], [address], 10/19/2024 13:44:11 10/19/19 25 10/19/2024 COMPR EHENS BELGICA METAB OLIC PANEL glucose 340 mg/dL 70-99 high Not Available [facility] (Lab) [address] [place], [address], 10/19/2024 13:44:11 10/19/19 25 10/19/2024 COMPR EHENS BELGICA METAB OLIC PANEL osmolality calculated 287 275-29 5 normal Not Available [facility] (Lab) [address] [place], [address], 10/19/2024 13:44:11 10/19/19 25 10/19/2024 COMPR EHENS BELGICA METAB OLIC PANEL calcium 9.3 mg/dL 8.7-10 .2 normal Not Available [facility] (Lab) [address] [place], [address], 10/19/2024 13:44:11 10/19/19 25 10/19/2024 COMPR EHENS BELGICA METAB OLIC PANEL bilirubin total 0.2 mg/dL 0.0-1. 2 normal Not Available [facility] (Lab) [address] [place], [address], 10/19/2024 13:44:11 10/19/19 25 10/19/2024 COMPR EHENS BELGICA METAB OLIC PANEL AST aspartate aminotransfe rase 13 IU/L 0-40 normal Not Available [facility] (Lab) [address] [place], [address], 10/19/2024 13:44:11 10/19/19 25 10/19/2024 COMPR EHENS BELGICA METAB OLIC PANEL ALT (alanine aminotransfe rase) 21 IU/L 0-32 normal Not Available [facility] (Lab) [address] [place], [address], 10/19/2024 13:44:11 10/19/19 25 10/19/2024 COMPR EHENS BELGICA METAB OLIC PANEL total protein 7.6 g/dL 6.0-8. 5 normal Not Available [facility] (Lab) [address] [place], [address], 10/19/2024 13:44:11 10/19/19 25 10/19/2024 COMPR EHENS BELGICA METAB OLIC PANEL albumin level 4.0 g/dL 3.9-4. 9 normal Not Available [facility] (Lab) [address] [facility], [place], [address], 10/19/2024 13:44:11 10/19/19 25 10/19/2024 COMPR EHENS BELGICA METAB OLIC PANEL globulin 3.6 g/dL 1.5-4. 5 normal Not Available [facility] (Lab) [address] [place], [address], 10/19/2024 13:44:11 10/19/19 25 10/19/2024 COMPR EHENS BELGICA METAB OLIC PANEL albumin globulin ratio 1.0 1.2-2. 2 low Not Available [facility] (Lab) [address] [place], [address], 10/19/2024 13:44:11 10/19/19 25 10/19/2024 COMPR EHENS BELGICA METAB OLIC PANEL alkaline phosphatase 61 IU/L 44-121 normal Not Available [facility] (Lab) [address] [place], [address], 10/19/2024 13:44:11 10/19/19 25 10/19/2024 LIPID PANEL triglyceride s 157 mg/dL 0-149 high Not Available [facility] (Lab) [address] [place], [address], 10/19/2024 13:44:13 10/19/19 25 10/19/2024 LIPID PANEL cholesterol 176 mg/dL 100-19 9 normal Not Available [facility] (Lab) [address] [place], [address], 10/19/2024 13:44:13 10/19/19 25 10/19/2024 LIPID PANEL LDL cholesterol 125 mg/dL 0-99 high Not Available [facility] (Lab) [address] [facility], [place], [address], 10/19/2024 13:44:13 10/19/19 25 10/19/2024 LIPID PANEL VLDL cholesterol (calc) 31 mg/dL 5-40 normal Not Available [facility] (Lab) [address] [facility], [place], [address], 10/19/2024 13:44:13 10/19/19 25 10/19/2024 LIPID PANEL HDL cholesterol 28 mg/dL 40-999 low Not Available [facility] (Lab) [address] [facility], [place], [address], 10/19/2024 13:44:13 10/19/19 25 10/19/2024 LIPID PANEL LDL HDL ratio 4.5 0-3.2 high Not Available [facility] (Lab) [address] [facility], [place], [address], 10/19/2024 13:44:13 10/19/19 25 10/19/2024 LIPID PANEL chol HDL ratio 6.0 mg/dL 0-4.4 high Not Available [facility] (Lab) [address] [place], [address], 10/19/2024 13:44:13 11/07/19 25 11/07/2024 NUSWA B VAGIN ITIS PLUS (VG+) atopobium vaginae LOW - 0 score Not Available [facility] ([facility]) [address] [facility], [place], [address], 11/08/2024 06:16:36 11/07/19 25 11/07/2024 NUSWA B VAGIN ITIS PLUS (VG+) bvab 2 LOW - 0 score Not Available [facility] ([facility]) [address] [facility], [place], [address], 11/08/2024 06:16:36 11/07/19 25 11/07/2024 NUSWA B VAGIN ITIS PLUS (VG+) megasphaera 1 LOW - 0 score Calcu late total score by samuel hernandez the 3 indiv idual bacte rial vagin osis (BV) marke r score s toget her. Total score is inter prete d as follo ws: Total score 0-1: Indic ates the absen ce of BV. Total score 2: Indet ermin ate for BV. Addit ional clini miguelina data shoul d be evalu ated to estab dee dee a diagn osis. Total score 3-6: Indic ates the prese nce of BV. Not Available [facility] ([facility]) [address] [facility], [place], [address], 11/08/2024 06:16:36 11/07/19 25 11/07/2024 NUA B VAGIN ITIS PLUS (VG+) teresita albicans, RENÉ POSITI VE negati ve abnormal Not Available [facility] ([facility]) [address] [facility], [place], [address], 11/08/2024 06:16:36 11/07/1911/07/2024 NUA B VAGIN ITIS PLUS (VG+) teresita glabrata, RENÉ POSITI VE negati ve abnormal Publi shed data demon strat e that up to 65% of Ashley da glabr yamile ident ified in cases of vagin al ashley diasi s have decre ased susce ptibi lity to fluco nazol e. Not Available [facility] ([facility]) [address] [facility], [place], [address], 11/08/2024 06:16:36 11/07/19 25 11/08/2024 NUA B VAGIN ITIS PLUS (VG+) trich vag by RENÉ NEGATI VE negati ve Not Available [facility] ([facility]) [address] [facility], [place], [address], 11/08/2024 06:16:36 11/07/19 25 11/08/2024 NUA B VAGIN ITIS PLUS (VG+) chlamydia trachomatis, RENÉ NEGATI VE negati ve Not Available [facility] ([facility]) [address] [facility], [place], [address], 11/08/2024 06:16:36 11/07/19 25 11/08/2024 NUA B VAGIN ITIS PLUS (VG+) neisseria gonorrhoeae, RENÉ NEGATI VE negati ve Not Available [facility] ([facility]) [address] [facility], [place], [address], 11/08/2024 06:16:36 11/07/19 25 11/08/2024 URINE CULTU RE, ROUTI NE urine culture, routine FINAL REPORT abnormal Not Available [facility] ([facility]) [address] [facility], [place], [address], 11/08/2024 08:22:35 11/07/19 25 11/08/2024 URINE CULTU RE, ROUTI NE result 1 COMMEN T abnormal Beta hemol ytic Strep tococ cus, group B Penic illin and ampic illin are drugs of choic e for treat ment of beta- hemol ytic strep tococ miguelina infec tions . Susce ptibi lity testi ng of penic illin s and other beta- lacta m agent s appro pal[place] by the FDA for treat ment of beta- hemol ytic strep tococ miguelina infec tions need not be perfo rmed routi na becau se nonsu scept ible isola devonte are extre carmen rare in any beta- hemol ytic strep tococ cus and have not been repor gretel for Strep tococ cus pyoge vero (grou p A). (CLSI ) 50,00 0-100 ,000 colon y formi ng units per mL Not Available [facility] ([facility]) [address] [facility], [place], [address], 11/08/2024 08:22:35 11/07/19 25 11/08/2024 URINE CULTU RE, ROUTI NE result 2 COMMEN T Mixed uroge nital betina 10,00 0-25, 000 colon y formi ng units per mL Not Available [facility] ([facility]) [address] [facility], [place], [address], 11/08/2024 08:22:35 11/07/19 25 11/06/2024 urina lysis , dipst ick Leukocytes Negati ve Not Available In-Office Order Internal Use Only DO Not Attach Compendium DO Not Attach Compendium, Do Not Delete/merge, 11/06/2024 13:16:26 11/07/19 25 11/06/2024 urina lysis , dipst ick Nitrite negati ve Not Available In-Office Order Internal Use Only DO Not Attach Compendium DO Not Attach Compendium, Do Not Delete/merge, 11/06/2024 13:16:26 11/07/19 25 11/06/2024 urina lysis , dipst ick Urobilinogen .2 Not Available In-Of fice Order Internal Use Only DO Not Attach Compendium DO Not Attach Compendium, Do Not Delete/merge, 11/06/2024 13:16:26 11/07/19 25 11/06/2024 urina lysis , dipst ick Protein 100 Not Available In-Office Order Internal Use Only DO Not Attach Compendium DO Not Attach Compendium, Do Not Delete/merge, 11/06/2024 13:16:26 11/07/19 25 11/06/2024 urina lysis , dipst ick pH 6.0 Not Available In-Office Order Internal Use Only DO Not Attach Compendium DO Not Attach Compendium, Do Not Delete/merge, 11/06/2024 13:16:26 11/07/19 25 11/06/2024 urina lysis , dipst ick Blood Small Not Available In-Office Order Internal Use Only DO Not Attach Compendium DO Not Attach Compendium, Do Not Delete/merge, [id number] 11/06/2024 13:16:26 11/07/19 25 11/06/2024 urina lysis , dipst ick Specific [place] 1.030 Not Available In-Off ice Order Internal Use Only DO Not Attach Compendium DO Not Attach Compendium, Do Not Delete/merge, [id number] 11/06/2024 13:16:26 11/07/19 25 11/06/2024 urina lysis , dipst ick Ketone Negati ve Not Available In-Office Order Internal Use Only DO Not Attach Compendium DO Not Attach Compendium, Do Not Delete/merge, 11/06/2024 13:16:26 11/07/19 25 11/06/2024 urina lysis , dipst ick Bilirubin Small Not Available In-Offic e Order Internal Use Only DO Not Attach Compendium DO Not Attach Compendium, Do Not Delete/merge, 11/06/2024 13:16:26 11/07/19 25 11/06/2024 urina lysis , dipst ick Glucose 500 Not Available In-Office Order Internal Use Only DO Not Attach Compendium DO Not Attach Compendium, Do Not Delete/merge, 11/06/2024 13:16:26 02/17/20 24 02/17/2024 elect pamela robbgr am No observ ation record ed. EBONI In-Office Order Internal Use Only DO Not Attach Compendium DO Not Attach Compendium, Do Not Delete/merge, 02/18/2024 12:41:16 Result Notes None recorded. Problems Name Problem SNOMED Code Status Onset Date Resolution Date Notes Provider Name and Address Organization Details Recorded Time Hypertensi ve heart disease 78598465 Active 2017 Not Available [facility] 4 05:43:59 Smoker 24374091 Active 2017 Not Available [facility] 4 05:43:59 Family history of Atheroscle rosis 899324689 Active 2017 Not Available [facility] 4 05:43:58 Impaired fasting glycemia 081807238 Active 2017 [facility] Available [facility] 4 05:43:58 Nicotine dependence 12543174 Active 2017 Not Available [facility] 4 05:43:59 Body mass index 30+ - obesity 055159004 Active 2017 Not Available [facility] 4 05:43:58 Snoring symptoms 845421338 Active 2017 Not Available [facility] 4 05:43:58 Iron deficiency anemia 25439920 Active 2017 Not Available [facility] 4 05:43:59 Influenza vaccinatio n declined 662908256 Active 2017 [facility] Available [facility] 4 05:43:58 Pneumococc al vaccinatio n declined 091147851 Active 2018 Not Available [facility] 4 05:43:58 Renal insufficie ncy 141230545 Active 2018 Not Available [facility] 4 05:43:59 Systolic heart failure 654976499 Active 2018 Not Available [facility] 4 05:43:58 Automatic implantabl e cardiac defibrilla tor in situ 833040036 Active 2019 Not Available [facility] 4 05:43:59 Heart failure with reduced ejection fraction 677814236 Active 2019 Jaylon Lopez MD Attn: Accounting ,[address] [place], [address] , [facility] 4 14:31:11 Congestive heart failure 86185747 Active 2020 Not Available [facility] 4 05:43:59 Impaired glucose tolerance 4193367 Active Not Available [facility] 4 05:43:59 Obesity 565811518 Active Not Available [facility] 4 05:43:58 Essential hypertensi on 54064709 Active 2023 Jaylon Lopez MD Attn: Accounting ,[address] [place], [address] , [place] [facility] 4 14:31:11 Anemia 107079158 Active Not Available [facility] 4 05:43:58 SARS-CoV-2 antigen vaccine declined 8462291283 Active 2021 Not Available [facility] 4 05:43:58 SARS-CoV-2 mRNA vaccine declined 2419141311 Active 2021 Not Available [facility] 4 05:43:58 Disorder of lipid metabolism 456692460 Active 2021 Not Available [facility] 4 05:43:58 Pure hyperchole sterolemia 890362466 Active 2021 Not Available [facility] 4 05:43:58 Statin declined 168916831 Active 2021 Not Available [facility] 4 05:43:58 Reduced mobility 8011424 Active 2021 Not Available [facility] 4 05:43:59 Type 2 diabetes mellitus without complicati on 375835522 Active 2021 Not Available [facility] 4 05:43:58 Acute injury of kidney 7780690087932 4108 Active 2023 Jaylon Lopez MD Attn: Accounting ,[address] [place], [address] , [place] [facility] 4 14:31:10 Ventricula r tachycardi a 37913863 Active 2021 Jaylon Lopez MD Attn: Accounting ,[address] [place], [address] , [place] [facility] 4 14:31:11 Finding of cardiovasc ular device 443416994 Active 2021 Jaylon Lopez MD Attn: Accounting ,[address] [place], [address] , [place] [facility] 4 14:31:11 Paroxysmal supraventr icular tachycardi a 71806103 Active 2021 Jaylon Lopez MD Attn: Accounting ,[address] [place], [address] , [place] [facility] 4 14:31:11 Cardiomyop athy 79072621 Active 2020 Jaylon Lopez MD Attn: Accounting ,[address] [facility], [place], [address] , [place] [facility] 4 14:31:11 Cholelithi asis without obstructio n 11502236 Active 2023 Jaylon Lopez MD Attn: Accounting ,[address] [facility], [place], [address] , [place] [facility] 4 18:55:22 Nonischemi c congestive cardiomyop athy 138375247180 Active 2023 Alexandro Bahena MD Attn: Accounting ,[address] [facility], [place], [address] , [place] [facility] 4 16:22:01 Left atrial enlargemen t 3023188755192 9 Active 2023 Alexandro Bahena MD Attn: Accounting ,[address] [facility], [place], [address] , [place] [facility] 4 16:22:05 Right atrial enlargemen t 0054872516377 6 Active 2023 Alexandro Bahena MD Attn: Accounting ,[address] [facility], [place], [address] , [place] [facility] 4 16:22:07 Aortic valve regurgitat ion 66624451 Active 2023 Alexandro Bahena MD Attn: Accounting ,[address] [facility], [place], [address] , [place] [facility] 4 16:22:10 Pulmonary hypertensi on 85012460 Active 2023 Alexandro Bahena MD Attn: Accounting ,[address] [facility], [place], [address] , [place] [facility] 4 16:22:13 Non-rheuma tic mitral regurgitat ion 613775911 Active 2023 Alexandro Bahena MD Attn: Accounting ,[address] [facility], [place], [address] , [place] [facility] 4 16:22:16 Diastolic dysfunctio n 6325079 Active 2023 Alexandro Bahena MD Attn: Accounting ,[address] [facility], [place], [address] , [place] [facility] 4 16:22:18 Left bundle branch block 37074103 Active 2023 Alexandro Bahena MD Attn: Accounting ,[address] [facility], [place], [address] , [place] [facility] 4 15:55:55 Chronic systolic heart failure 868817467 Active 2023 Alexandro Bahena MD Attn: Accounting ,[address] [facility], [place], [address] , [place] [facility] 4 15:55:58 Psoriasis 0627502 Active Not Available [facility] 4 05:43:59 Eczema 44009278 Active Not Available [facility] 4 05:43:59 Chest pain 47684928 Active Not Available [facility] 4 05:43:58 Headache 05249738 Active Not Available [facility] 4 05:43:58 Anxiety disorder 422432092 Active Not Available [facility] 4 05:43:58 Furunculos is of skin AND/OR subcutaneo us tissue Active Not Available [facility] 4 15:24:45 Cervicovag inal cytology: Low grade squamous intraepith elial lesion 480155635 Active Not Available [facility] 4 05:43:58 Notes:Some problems listed i n Documents: #[id number], #[id number] could not be added to this patient's chart. Please review these documents and add these problems to the patient's chart manually as needed. Problem Notes None recorded. Procedures Surgical History Date Name Laterality Status Provider Name and Address Organization Details Recorded Time 10/04/19 24 Diabetic Foot Exam completed Jaylon Lopez MD Attn: Accounting,[address] [facility], [place], [address], [facility] 10/04/2023 19:22:46 08/21/20 22 Date of Last Pap Smear completed Nallely Carias [place] [facility] 08/21/2022 11:52:13 05/31/20 20 Aicd, dual chamber completed Jaylon Lopez MD Attn: Accounting,[address] [facility], [place], [address], [place] [facility] 09/26/2020 12:36:23 07/28/20 19 Depo Injection completed Aby Cabrera [place] [facility] 07/28/2019 14:44:39 07/26/20 18 Colposcopy completed Italia Schmitz MD Attn: Accounting,[address] [place], [address], [facility] 07/26/2018 11:56:02 07/26/20 18 Endometrial Biopsy completed Italia Schmitz MD Attn: Accounting,[address] [facility], [place], [address], [facility] 07/26/2018 11:56:25 02/05/20 05 Caesarean Section completed Dixie Duran [place] [facility] 11/13/2014 10:47:39 09/06/19 05 Tubal Ligation completed Nallely Carias [facility] 01/22/2021 15:58:38 09/03/20 03 Caesarean Section completed Dixie Roger [facility] 11/13/2014 10:47:18 Imaging Results Imaging Date Name Status LastModified by Organization Details LastModified Time 02/17/2024 electrocardiogram completed EBONI In-Offi ce Order Internal Use Only DO Not Attach Compendium DO Not Attach Compendium, Do Not Delete/merge, [id number] 02/18/2024 12:41:16 Procedure Notes None recorded. Medical Equipment None Reported. Allergies Allergen ID Allergen Name Allergen Category Reaction Reaction Severity Criticality Documentation Date Start Date Code Code System Note Provider Name and Address Organization Details Recorded Time 884576 No known allergy (situatio n) Not available Not available Not available Not available 11/26/2023 56600 6003 SNOMED Not Available Not Available Not Available No known drug allergies Medications Name Sig Start Date Stop Date Status Note LastModified by Organization Details LastModified Time Prescript ion - Prior Authoriza tion Request 08/28 completed Not Available Not Available Not Available tetracycl ine 500 mg capsule TAKE ONE CAPSULE BY MOUTH FOUR TIMES DAILY DIRECTED FOR 14 DAYS, FOR*H. PYLORI 05/04 completed Not Available Not Available Not Available cyclobenz aprine 10 mg tablet 08/14 completed Not Available Not Available Not Available furosemid e 40 mg tablet TAKE 1 TABLET BY MOUTH TWICE DAILY active Not Available Not Available No t Available hydralazi ne 10 mg tablet Take 1 tablet 3 times a day by oral route for 30 days. 05/05 completed Not Available Not Available Not Available promethaz ine-DM 6.25 mg-15 mg/5 mL oral syrup TAKE 5 ML BY MOUTH EVERY 4 HOURS FOR 4 DAYS NEEDED 10/04 completed Not Available Not Available Not Available carvedilo l 25 mg tablet TAKE 1 AND 1/2 TABLETS BY MOUTH TWICE DAILY 10/09 completed Not Available Not Available Not Available clonidine HCl 0.1 mg tablet Take 1 tablet twice a day by oral route as directed for 30 days. 08/14 completed Not Available Not Available Not Available acetamino phen 325 mg tablet 06/11 completed Not Available Not Available Not Available carvedilo l 6.25 mg tablet Take 1 tablet twice a day by oral route as directed for 30 days. 06/11 completed Not Available Not Available Not Available doxycycli ne hyclate 100 mg capsule Take 1 capsule twice a day by oral route for 30 days. active Not Available Not Available No t Available carvedilo l 12.5 mg tablet Take 1 tablet twice a day by oral route as directed for 30 days. 06/11 completed Not Available Not Available Not Available ketoconaz ole 2 % shampoo lather into scalp and let sit x 5 minutes then rinse out three times per week. 08/14 completed Not Available Not Available Not Available clindamyc in HCl 300 mg capsule 04/09 completed Not Available Not Available Not Available diltiazem ER (XR/XT) 240 mg capsule,e xtended release 24 hr, controlle d 04/09 completed Not Available Not Available Not Available cetirizin e 10 mg tablet 05/05 completed Not Available Not Available Not Available azithromy jonathan 250 mg tablet 04/14 completed Not Available Not Available Not Available ibuprofen 800 mg tablet 08/14 completed Not Available Not Available Not Available metoprolo l tartrate 100 mg tablet Take 1 tablet twice a day by oral route. active Not Available Not Available No t Available fluconazo le 150 mg tablet TAKE 1 TABLET BY MOUTH DIRECTED FOR 1 DAY FOR VULVOCAN DIDIASIS active Not Available Not Available No t Available metoprolo l succinate ER 50 mg tablet,ex tended release 24 hr Take 1 tablet every day by oral route. 03/25 completed Not Available Not Available Not Available hydrocodo ne 5 mg-acetam inophen 325 mg tablet TAKE 1 TABLET BY MOUTH EVERY 6 HOURS NEEDED FOR PAIN 10/04 completed Not Available Not Available Not Available metoprolo l succinate ER 200 mg tablet,ex tended release 24 hr Take 1 tablet twice a day by oral route for 30 days. active Not Available Not Available No t Available metronida zole 0.75 % (37.5 mg/5 gram) vaginal gel Insert 1 applicat orful every day by vaginal route at bedtime for 5 days. 06/17 completed Not Available Not Available Not Available lisinopri l 20 mg tablet Take 1 tablet every day by oral route. 05/05 completed Not Available Not Available Not Available prednison e 20 mg tablet Take 1 tablet twice a day by oral route for 5 days. 05/05 completed Not Available Not Available Not Available isosorbid e mononitra te ER 30 mg tablet,ex tended release 24 hr TAKE 1 TABLET BY MOUTH EVERY DAY IN THE MORNING active Not Available Not Available No t Available Tubersol 5 tub. unit/0.1 mL intraderm al injection solution Take 0.1 mL by intrader mal route. 04/09 completed 01/01/20 16 neg Not Available Not Available Not Available metoprolo l succinate ER 100 mg tablet,ex tended release 24 hr TAKE 1 TABLET BY MOUTH DAILY 02/27 completed Not Available Not Available Not Available Doc-Q-Lac e 100 mg capsule Take 1 capsule every day by oral route. 04/09 completed Not Available Not Available Not Available metronida zole 250 mg tablet Take 1 tablet 4 times a day by oral route as directed for 14 days, for H. pylori. 05/04 completed Not Available Not Available Not Available penicilli n V potassium 500 mg tablet Take 1 tablet every 8 hours by oral route before meal(s) for 7 days, for GBS UTI. 11/22 completed Not Available Not Available Not Available hydralazi ne 25 mg tablet Take 1 tablet 3 times a day by oral route for 30 days. 10/09 completed Not Available Not Available Not Available acetamino phen 300 mg-codein e 15 mg tablet TAKE 1 TABLET BY MOUTH EVERY 8 HOURS 05/04 completed Not Available Not Available Not Available chlorthal idone 25 mg tablet TAKE 1 TABLET BY MOUTH EVERY DAY active Not Available Not Available No t Available amlodipin e 5 mg tablet Take 1 tablet every day by oral route as directed for 30 days. 03/26 completed Not Available Not Available Not Available sulfameth oxazole 800 mg-trimet hoprim 160 mg tablet Take 1 tablet every 12 hours by oral route as directed for 7 days. 06/11 completed Not Available Not Available Not Available tramadol 50 mg tablet 05/05 completed Not Available Not Available Not Available spironola ctone 25 mg tablet TAKE 1 TABLET BY MOUTH EVERY DAY DIRECTED active Not Available Not Available No t Available amoxicill in 500 mg tablet TAKE 1 TABLET BY MOUTH EVERY 8 HOURS 05/04 completed Not Available Not Available Not Available carvedilo l 3.125 mg tablet Take 1 tablet twice a day by oral route as directed for 30 days. 08/08 completed Not Available Not Available Not Available Depo-Medr ol 80 mg/mL suspensio n for injection Take 1 mL by injectio n route. 05/05 completed Not Available Not Available Not Available alprazola m 0.5 mg tablet 04/09 completed Not Available Not Available Not Available Cardizem CD 240 mg capsule,e xtended release Take 1 capsule every day by oral route. 04/09 completed Not Available Not Available Not Available magnesium oxide 400 mg (241.3 mg magnesium ) tablet TAKE 1 TABLET BY MOUTH TWICE DAILY FOR 7 DAYS DIRECTED 01/13 completed Not Available Not Available Not Available gentamici n 0.3 % eye drops 06/01 completed Not Available Not Available Not Available ciproflox acin 0.3 % eye drops INSTILL 1 DROP INTO AFFECTED EYE(S) BY OPHTHALM IC ROUTE EVERY 2 HOURSWHI LE AWAKE FOR 2 DAYS THEN 1 DROP EVERY 4 HRS WHILE AWAKE FOR 5 DAYS 08/12 completed Not Available Not Available Not Available Flagyl 500 mg tablet Take 1 tablet twice a day by oral route for 7 days. 08/08 completed Not Available Not Available Not Available sulfaceta mide sodium 10 % eye drops INSTILL 1 DROP INTO AFFECTED EYE(S) BY OPHTHALM IC ROUTE EVERY 2-3 HOURS DURING THE DAY AND LESS FREQUENT LY AT NIGHT 05/05 completed Not Available Not Available Not Available amlodipin e 10 mg tablet Take 1 tablet every day by oral route at bedtime. 10/04 completed Not Available Not Available Not Available doxycycli ne monohydra te 100 mg capsule 10/09 completed Not Available Not Available Not Available Bismuth 262 mg chewable tablet Take 1 tablet 4 times a day by oral route. 12/22 completed Not Available Not Available Not Available cephalexi n 500 mg capsule TAKE 1 CAPSULE BY MOUTH EVERY 12 HOURS 01/22 completed Not Available Not Available Not Available erythromy jonathan 5 mg/gram (0.5 %) eye ointment APPLY 1 CM RIBBON INTO THE LOWER CONJUNCT IVAL SAC(S) IN THE AFFECTED EYE(S) BY OPHTHALM IC ROUTE 3 TIMES PER DAY FOR 5 DAYS 05/05 completed Not Available Not Available Not Available triamcino lone acetonide 0.1 % topical ointment APPLY TOPICALL Y TO RASH ON ARM NEEDED active Not Available Not Available No t Available lisinopri l 10 mg tablet TAKE 1 TABLET BY MOUTH EVERY DAY 01/22 completed Not Available Not Available Not Available metoprolo l tartrate 50 mg tablet TAKE 1 TABLET BY MOUTH TWICE DAILY 06/17 completed Not Available Not Available Not Available triamtere ne 37.5 mg-hydroc hlorothia zide 25 mg tablet Take 1 tablet every day by oral route in the morning for 30 days. 05/05 completed Not Available Not Available Not Available omeprazol e 20 mg capsule,d elayed release TAKE 1 CAPSULE BY MOUTH TWICE DAILY DIRECTED FOR 14 DAYS 05/04 completed Not Available Not Available Not Available Banophen 25 mg capsule Take 2 capsules 3 times a day by oral route as needed. 08/12 completed Not Available Not Available Not Available magnesium citrate oral solution Take 150 mL twice a day by oral route as needed for 1 day. 07/01 completed 340-B Not Available Not Available Not Available lisinopri l 20 mg-hydroc hlorothia zide 25 mg tablet Take 1 tablet every day by oral route. 04/16 completed Not Available Not Available Not Available monteluka st 10 mg tablet 06/11 completed Not Available Not Available Not Available hydroxyzi ne HCl 25 mg tablet TAKE 1 TABLET BY MOUTH THREE TIMES DAILY FOR 14 DAYS NEEDED 07/01 completed Not Available Not Available Not Available hydralazi ne 50 mg tablet TAKE 1 TABLET BY MOUTH EVERY 8 HOURS active Not Available Not Available No t Available hydrochlo rothiazid e 25 mg tablet Take 1 tablet every day by oral route. 08/14 completed PM Not Available Not Available Not Available norethind catrachita acetate 5 mg tablet Take 1 tablet every day by oral route as directed for 90 days, for control. 2024 active Not Available Not Available Not Avai lable ergocalci ferol (vitamin D2) 1,250 mcg (50,000 unit) capsule TAKE 1 CAPSULE BY MOUTH 1 TIME A WEEK FOR 7 DOSES 01/22 completed Not Available Not Available Not Available fluocinol one 0.01 % topical solution APPLY TO THE AFFECTED AREA(S) BY TOPICAL ROUTE ONCE A DAY 02/15 completed Not Available Not Available Not Available ibuprofen 600 mg tablet 08/12 completed Not Available Not Available Not Available polyethyl marilu glycol 3350 17 gram/dose oral powder Take 17 g every day by oral route as directed for 30 days. 06/11 completed Not Available Not Available Not Available levofloxa jonathan 750 mg tablet Take 1 tablet every day by oral route around the clock for 5 days. 10/04 completed Please cancel the order for Azithrom ycin Not Available Not Available Not Available zolpidem 10 mg tablet 05/05 completed Not Available Not Available Not Available methylpre dnisolone 4 mg tablets in a dose pack FOLLOW PACKAGE DIRECTIO NS 04/14 completed Not Available Not Available Not Available albuterol sulfate HFA 90 mcg/actua tion aerosol inhaler INHALE 1 TO 2 PUFFS BY MOUTH EVERY 6 HOURS NEEDED FOR WHEEZING 10/29 completed Not Available Not Available Not Available betametha sone dipropion ate 0.05 % topical ointment 06/11 completed Not Available Not Available Not Available clobetaso l 0.05 % scalp solution 01/12 completed Not Available Not Available Not Available lisinopri l 40 mg tablet TAKE 1 TABLET BY MOUTH EVERY DAY DIRECTED active Not Available Not Available No t Available metformin ER 500 mg tablet,ex tended release 24 hr TAKE 2 TABLETS BY MOUTH EVERY DAY AT BEDTIME 12/22 completed Not Available Not Available Not Available medroxypr ogesteron e 150 mg/mL intramusc ular suspensio n Inject 1 mL every 3 months by intramus cular route. 06/11 completed Not Available Not Available Not Available naproxen 500 mg tablet TAKE 1 TABLET BY MOUTH TWICE DAILY 04/09 completed Not Available Not Available Not Available metoclopr amide 10 mg tablet Take 1 tablet 3 times a day by oral route as needed for 6 days. 08/12 completed Not Available Not Available Not Available amoxicill in 875 mg-potass ium clavulana te 125 mg tablet 12/12 completed Not Available Not Available Not Available clindamyc in phosphate 1 % topical solution 12/22 completed Not Available Not Available Not Available tobramyci n 0.3 %-dexamet hasone 0.1 % eye drops,ashlee pension 08/12 completed Not Available Not Available Not Available oxycodone 5 mg tablet 12/22 completed Not Available Not Available Not Available neomycin- polymyxin -hydrocor t 3.5 mg-10,000 unit/mL-1 % ear drops,ashlee p INSTILL 4 DROPS INTO AFFECTED EAR(S) BY OTIC ROUTE 3 TIMES PER DAY 06/01 completed Not Available Not Available Not Available clindamyc in 1 % lotion APPLY TOPICALL Y TO FACE AND ARMPITS EVERY MORNING. active Not Available Not Available No t Available medroxypr ogesteron e 150 mg/mL intramusc ular syringe Inject 1 mL every 3 months by intramus cular route. 06/18 completed Not Available Not Available Not Available Arthritis Pain Relief (acetamin ophen) ER 650 mg tablet,ex tend release Take 2 tablets every 8 hours by oral route as needed for 10 days. 06/11 completed Not Available Not Available Not Available Benicar HCT 20 mg-12.5 mg tablet Take 1 tablet every day by oral route. 05/05 completed Stress to drink a lot of water, banana daily Not Available Not Available Not Available rosuvasta tin 10 mg tablet TAKE 1 TABLET BY MOUTH EVERY DAY AT BEDTIME 11/09 completed Not Available Not Available Not Available bupropion HCl XL 300 mg 24 hr tablet, extended release 06/11 completed Not Available Not Available Not Available fluocinol one 0.01 % scalp oil and shower cap massage into scalp and ears at bedtime three times per week. 08/14 completed Not Available Not Available Not Available salicylic acid 6 % shampoo LATHER AND MASSAGE INTO SCALP AND LET SIT FOR 5 MINUTES THEN RINSE OUT TWICE WEEKLY 10/17 completed Not Available Not Available Not Available calcium 600 mg (as carbonate )-vitamin D3 10 mcg (400 unit) tablet Take 1 tablet twice a day by oral route. 06/18 completed Not Available Not Available Not Available Symbicort 160 mcg-4.5 mcg/actua tion HFA aerosol inhaler 06/18 completed Not Available Not Available Not Available FeroSul 325 mg (65 mg iron) tablet TAKE 1 TABLET BY MOUTH DAILY 10/09 completed Not Available Not Available Not Available Bystolic 10 mg tablet Take 1 tablet every day by oral route. 05/05 completed Not Available Not Available Not Available oxycodone 10 mg tablet 06/11 completed Not Available Not Available Not Available Selsun Blue 1 % shampoo Apply 1 applicat ion every day by topical route. 05/05 completed Not Available Not Available Not Available blood pressure test kit-large cuff 10/09 completed [facility] Not Available Not Available Not Available Isabel 0.35 mg tablet TAKE ONE TABLET BY MOUTH EVERY DAY 01/29 completed Not Available Not Available Not Available OneTouch Verio test strips USE ONCE DAILY FOR TESTING. 11/22 completed Not Available Not Available Not Available Stimulant Laxative Plus 8.6 mg-50 mg tablet TAKE 2 TABLETS BY MOUTH EVERY DAY NEEDED FOR CONSTIPA TION 12/22 completed Not Available Not Available Not Available Jardiance 25 mg tablet TAKE 1 TABLET BY MOUTH EVERY DAY DIRECTED 11/09 completed Not Available Not Available Not Available Entresto 49 mg-51 mg tablet TAKE ONE TABLET BY MOUTH TWICE DAILY EVERY MORNING AND EVERY EVENING active Not Available Not Available No t Available selenium sulfide 2.5 % lotion 06/29 completed Not Available Not Available Not Available OneTouch Delica Plus Lancet 30 gauge TEST DAILY DIRECTED . 11/22 completed Not Available Not Available Not Available Slynd 4 mg (28) tablet Take 1 tablet every day by oral route. 11/17 completed 11/17/22: Not covered by Medicare : [place] Not Available Not Available Not Available OneTouch Verio Reflect Meter FOLLOW PACKAGE DIRECTIO NS. 11/22 completed Not Available Not Available Not Available Cosentyx UnoReady Pen 300 mg/2 mL subcutane ous pen injector 10/26 completed Not Available Not Available Not Available Vitals Date Recorded Body height Body mass index (BMI) Body weight Heart rate Respiratory rate Oxygen saturation Oxygen saturation in Arterial blood by Pulse oximetry Systolic blood pressure Diastolic blood pressure Provider Name and Address Organization Details Last Updated DateTime 4 170.18 cm 50.8 kg/m2 817077. 08 g 80 /min 18 /min 98 % 98 % 116 mm[Hg] 62 mm[Hg] Michael goldman [place] - [facility] 4 14:56:03 Date Recorded Body height Body mass index (BMI) Body weight Heart rate Oxygen saturation Oxygen saturation in Arterial blood by Pulse oximetry Respiratory rate Systolic blood pressure Diastolic blood pressure Provider Name and Address Organization Details Last Updated DateTime 4 170.18 cm 53.1 kg/m2 228099. 81 g 84 /min 98 % 98 % 18 /min 124 mm[Hg] 96 mm[Hg] Isabel Davis MA [facility] 4 14:27:14 Date Recorded Body height Body mass index (BMI) Body weight Heart rate Oxygen saturation Oxygen saturation in Arterial blood by Pulse oximetry Systolic blood pressure Diastolic blood pressure Provider Name and Address Organization Details Last Updated DateTime 5 170.18 cm 54.3 kg/m2 519078. 12 g 80 /min 99 % 99 % 120 mm[Hg] 78 mm[Hg] Jodi Green MA [facility] 5 11:48:23 Date Recorded Body height Body mass index (BMI) Body weight Oxygen saturation Oxygen saturation in Arterial blood by Pulse oximetry Heart rate Systolic blood pressure Diastolic blood pressure Provider Name and Address Organization Details Last Updated DateTime 5 170.18 cm 54.1 kg/m2 738835. 17 g 98 % 98 % 110 /min 126 mm[Hg] 94 mm[Hg] Donna Calvillo MA [facility] 5 12:22:22 Date Recorded Body height Body mass index (BMI) Body weight Oxygen saturation Oxygen saturation in Arterial blood by Pulse oximetry Heart rate Systolic blood pressure Diastolic blood pressure Provider Name and Address Organization Details Last Updated DateTime 5 170.18 cm 53.6 kg/m2 080521. 64 g 98 % 98 % 78 /min 130 mm[Hg] 88 mm[Hg] Cheryl Lee MA [facility] 5 11:00:08 Social History Question Answer Notes LastModified by Organizat ion Details LastModified Time Tobacco Smoking Status Former Smoker Quit a week ago 10/09/2019 per patient GEORGE Walls, [facility] 10/09/2019 15:28:44 Do You Have An Advance Directive? No Information not available 12/05/2014 What Is Your Level Of Alcohol Consumption? Occasional Information not available 08/08/2018 How Many Years Have You Consumed Alcohol? 25 Information not available 01/23/2021 Are You Blind Or Do You Have Difficulty Seeing? No Information not available 01/23/2021 Is Blood Transfusion Acceptable In An Emergency? Yes Information not available 08/08/2018 What Is Your Level Of Caffeine Consumption? Occasional Information not available 01/23/2021 Live With Cats/exposure To Cat Litter No Information not available 08/08/2018 How Much Tobacco Do You Chew? None [email or web address] Information not available 12/05/2014 In The 14 Days Before Symptom Onset, Have You Had Close Contact With A Laboratory-confi rmed COVID-19 While That Case Was Ill? No Information not available 01/23/2021 In The 14 Days Before Symptom Onset, Have You Had Close Contact With A Person Who Is Under Investigation For COVID-19 While That Person Was Ill? No Information not available 01/23/2021 Have You Been To An Area Known To Be High Risk For COVID-19? Yes Information not available 01/23/2021 Are You Currently Employed? No Information not available 08/08/2018 Are You Deaf Or Do You Have Serious Difficulty Hearing? No Information not available 01/23/2021 What Type Of Diet Are You Following? REGULAR [email or web address] Information not available 10/25/2014 Which Illicit Or Recreational Drugs Have You Used? Marijuana Information not available 05/05/2018 Do You Or Have You Ever Used E-cigarettes Or Vape? Never Used Electronic Cigarettes Information not available 08/14/2019 Education 11 [email or web address] Information n ot available 12/05/2014 What Is Your Occupation? Unemployed Information not available 03/25/2017 Frequent Air Travel No Information not available 08/08/2018 Are There Any Guns Present In Your Home? No [email or web address] Information not available 10/25/2014 Hard Of Hearing Or Deaf In One Or Both Ears? No [email or web address] Information not available 12/05/2014 Legally Blind In One Or Both Eyes? No [email or web address] Information not available 12/05/2014 Live Alone Or With Others? With Others Children Information not available 08/08/2018 Marital Status Single [email or web address] Informati on not available 12/05/2014 Do You Have A Medical Power Of Waiter/Waitress Room Service? No [email or web address] Information not available 12/25/2021 What Was The Date Of Your Most Recent Tobacco Screening? 11/22/2024 Information not available 11/22/2024 What Is Your Current Pack Years? 10packyears [email or web address] Information not available 12/23/2023 Performs Monthly Self-breast Exam? No Information not available 12/05/2014 Do You Use Protection During Sex? Always Information not available 08/08/2018 What Is Your Relationship Status? Single Information not available 08/08/2018 Do You Use Your Seat Belt Or Car Seat Routinely? Yes [email or web address] Information not available 12/13/2023 Seat Belts Used Routinely Yes [email or web address] Information not available 10/25/2014 Are You Sexually Active? Yes Information not available 08/08/2018 Smoke Alarm In Home Yes Information not available 10/25/2014 Do You Have Smoke And Carbon Monoxide Detectors In Your Home? Yes Information not available 08/08/2018 At What Age Did You Start Smoking Tobacco? 18 Information not available 03/25/2017 Are You Passively Exposed To Smoke? Yes Information not available 08/08/2018 Do You Or Have You Ever Used Smokeless Tobacco? Never Used Smokeless Tobacco Information not available 08/14/2019 How Much Tobacco Do You Smoke? 0.5 PPD Information not available 03/25/2017 General Stress Level High [email or web address] Information not available 12/05/2014 Do You Use Any Illicit Or Recreational Drugs? Yes Marijuana Information not available 01/23/2021 Do You Use Sunscreen Routinely? No Information not available 08/08/2018 Has Tobacco Cessation Counseling Been Provided? Yes [email or web address] Information not available 01/12/2023 On What Date Was Tobacco Cessation Counseling Provided? 11/22/2024 Information not available 11/22/2024 How Many Years Have You Smoked Tobacco? 13 Information not available 03/25/2017 Do You Or Have You Ever Used Any Other Forms Of Tobacco Or Nicotine? No [email or web address] Information not available 01/22/2021 Sex: Female Functional Status Question Answer Note LastModified by Organization D etails LastModified Time Are you able to care for yourself? Yes Information n ot available 01/23/2021 What is your exercise level? None [email or web address] Information not available 10/25/2014 Mental Status None recorded. Family History Relationship Description Onset Age of this Age Resolved Age Notes LastModified by Organization Details LastModified Time Father Diabetes mellitus [email or web address] Not available 2015 14:23:38 Father History of hypertension [email or web address] Not available 14:23:38 Father Heart disease [email or web address] Not available 2024 11:07:48 Paternal Grandmother Diabetes mellitus [email or web address] Not available 2015 14:23:38 Paternal Grandmother History of hypertension [email or web address] Not available 14:23:38 Mother Uterine leiomyoma [email or web address] Not available 2015 14:23:38 Medical History Condition Response Other Y High Blood Pressure Y Breast Cancer N Thyroid Problems N Kidney or Bladder Problems N GI Problems N Lung Disease N Depression N Blood Clots N Acne N Breast Problem N Skin Problems Y Eating Disorder N Anemia Y Anesthesia Complications N Headaches/Migraines N Anxiety Disorder N Diabetes N Ovarian Cancer N Muscle, Joint, or Bone Problems N Obesity Y Blood Transfusions N Seizures/Epilepsy N Infertility N Polyps N Acid Reflux (GERD) N Cancer N Abuse/Domestic Violence N Asthma N Endometriosis N High Cholesterol N Hepatitis N Liver Disease N Heart Disease N Pre-Eclampsia N Hypertension Y Heart Failure Y Osteoporosis N Gynecological History Statement/Question Response Abnormal Pap Y Flow Moderate Date of LMP 01/12/2023 On BCP's at Conception? N STIs/STDs N Age at Menarche 14 Current Control Method Tubal Ligat ion Age at First Child 16 Frequency of Cycle (Q days) Sexually Active? Y Menses Monthly Date of Last Pap Smear 08/21/2022 Sexual Problems? N LMP Approximate Desired Control Method Hormonal In jection Obstetrics History GPAL:G 3 P 1 2 0 4 Type Value Multiple Births 1 Full Term 1 Induced 0 Spontaneous 0 Premature 2 Living 4 Ectopics 0 Total 3 Immunizations Vaccine Type Date Status Note Provider Nam e and Address Organization Details Recorded Time SARS-COV-2 (COVID-19) vaccine, UNSPECIFIED 2 completed Not Available [facility] 09/29/2023 05:43:59 SARS-COV-2 (COVID-19) vaccine, UNSPECIFIED 2 completed Not Available [facility] 09/29/2023 05:43:59 DTP 4 completed Not Available [facility] 09/29/2023 05:43:59 DTP 9 completed Not Available [facility] 09/29/2023 05:43:59 DTP 4 completed Not Available [facility] 09/29/2023 05:43:59 OPV 9 completed Not Available [facility] 09/29/2023 05:43:59 DTP 4 completed Not Available [facility] 09/29/2023 05:43:59 MMR 5 completed Not Available [facility] 09/29/2023 05:43:59 MMR 3 completed Not Available [facility] 09/29/2023 05:43:59 OPV 4 completed Not Available [facility] 09/29/2023 05:43:59 Td (adult), 2 Lf tetanus toxoid, preservative free, adsorbed 8 completed Jaylon Lopez MD Attn: Accounting,[address] [facility], [place], [address], [place] [facility] 10/04/2023 19:29:57 Hib, unspecified formulation 6 completed Not Available [facility] 09/29/2023 05:43:59 OPV 4 completed Not Available [facility] 09/29/2023 05:43:59 DTP 6 completed Not Available [facility] 09/29/2023 05:43:59 OPV 6 completed Not Available [facility] 09/29/2023 05:43:59 Tdap 6 completed Jaylon Lopez MD Attn: Accounting,[address] [facility], [place], [address], [place] [facility] 11/26/2023 14:31:25 Pneumococcal conjugate PCV20, polysaccharide [id number] conjugate, adjuvant, PF 4 completed Jaylon Lopez MD Attn: Accounting,[address] [facility], [place], [address], [place] [facility] 10/04/2023 19:03:38 Past Encounters Encounter ID Performer Location Encounter Start Date Encounter Closed Date Diagnosis/Indication Diagnosis SNOMED-CT Code Diagnosis ICD10 Code Diagnosis Note [id number] Evi Casillas RN [facility] [address], [place] [address] 12/05/2014 12:36:53 12/12/2014 17:00:23 Obesity 642494908 Anemia 052835109 Impaired g lucose tolerance 9586131 Essential hypertension 85885815 Psoriasis 0239549 contin ue triamcinol one spray per dermatolog y Eczema 71058272 Chest pain 15175478 keep appointmen t with cardiology for stress test stop smoking Headache 88605572 will g belgica Naprosyn prn headaches [id number] Alex Leiva MD [address] [address] 12/30/2015 18:20:25 01/04/2016 03:48:12 History and physical examination, pre-employment 906747005 Z02.1 [id number] Zuhair Perry [facility] [address], [place] [address] 04/16/2016 14:52:15 04/27/2016 12:36:21 Essential hypertension 55833277 I10 repeat b/p left arm 200/120 will restart all 3 of patient's blood pressure medication stressed importance of taking b/p medicines daily to avoid potential complicati ons even Chest pain 15020018 R07. 9 Discussed Importance of following up with Cardiology for evaluation of chest pain keep appointmen t with cardiology stop smoking Obesity 011690630 E66.9 Impaired g lucose tolerance 9332959 R73.02 Noncomplia nce with medication regimen 775309789 Z91.14 Eczema 70788009 L30.9 [id number] Genna Silva [facility] [address], [place] [address] 05/20/2016 14:11:31 05/24/2016 17:29:22 Gynecologic examination 73908850 Z01.411 Calcium Rich foods handout Vitamin D daily [facility] teaching/ handout Obesity 045317500 E66.9 Essential hypertension 74347030 I10 stressed importance of taking b/p medicines daily to avoid potential complicati ons even continue present meds Anxiety disorder 7970091 06 F41.9 Furunculos is of skin AND/OR subcutaneous tissue 07013365 L02.92 Use an antibacter ial soap if problem worsens will need to return to DERMATOLOG Y [id number] Zuhair Perry, TELE[employer] S[employer] WORKER-[facility] [address] [place] [address] 06/17/2016 14:42:44 06/23/2016 15:50:35 Essential hypertension 88536805 I10 Patient's blood pressure remains elevated despite taking Toprol XL 150mg daily, Amlodipine 10mg daily and Triamteren e 37.5/HCTZ2 5mg daily Will give Samples Benicart/H CTZ 12.5mg once daily Patient to get her B/P check in 1 month with RN Obesity 568303603 E66.9 Impaired g lucose tolerance 2144626 R73.02 Cervicovag inal cytology: 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 Restart medication with close observatio n Body mass index 40+ - severely obese 166304271 Z68.41 44.5, discussed improvemen ts to diet and increasing physical activity [id number] Kaci Doshi MA [address] [address] 04/02/2017 11:33:21 05/04/2017 16:21:36 Body mass index 40+ - severely obese 832523421 Z68.41 44.5, discussed improvemen ts to diet and increasing physical activity [id number] Alex Leiva MD 04 [address] [address] 11/05/2017 18:42:08 11/08/2017 08:49:23 Essential hypertension 21434111 I10 UNCONTROLL ED. Eczema 52592331 L30.9 Cellulitis 455144595 L03 .90 Conjunctivitis 3197497 H 10.9 [id number] Oswaldo Moran MD [facility] [address] [place] [address] 03/28/2018 14:16:46 04/20/2018 12:18:30 Essential hypertension 29922300 I10 Initially, BP 196/162. Administer ed clonidine HCl 0.1 mg today in the office.At discharge, re-checked BP 180/150, and patient is asymptomat ic.Patient advised to go to the ER if in severe distress; patient verbalized understand ing.Encour aged patient to quit smoking and be complaint with BP medication s.Refer to ophthalmol khoa.Labs ordered: lipid, CMP, CBC,Ordere d chest x-ray and EKG. Orders provided to the patient, with verbal instructio ns to take the orders to the hospital of her choice to complete. The patient verbalized understand ing.Prescr ibed hydralazin e 10 mg PO TIDPrescri bed lisinopril 40 mg PO at bedtime.Pr escribed triamteren e 37.5 mg-HCTZ 25 mg PO in the morning.Re ferred to opthalmolo gy.Referre d to cardiology . Otitis externa 0134672 H 60.92 Prescribed neomycin-p olymxin-hy drocort 3.5 mg-10,000 unit/mLVer bal instructio ns on using this medicaton provided to the patient; the patient verbalized understand ing. Seborrheic dermatitis 50 785402 L21.9 Avoid oil or gel to scalp.Use OTC Head and Shoulder shampoo, or prescribed Selsun Blue 1% shampoo.Us e hydrating soap.Patie nt instructed to use Synalar solution as prescribed , rinse it out completely , and then follow up with Selsun Blue 1% shampoo; patient verbalized understand ing. [id number] Jose Angel Leiva MD [facility] ([facility]) [address] [place] [address] 04/18/2018 12:25:08 04/26/2018 14:04:36 Hypertensive heart disease 32589449 I11.9 Obesity 474159674 E66.9 Impaired g lucose tolerance 3525528 R73.02 Smoker 52053168 F17.200 Family his tory of Atherosclerosis 023857599 Z82.49 [id number] MD Kevin Becerra (Adult Med) [address] [place] [address] 05/05/2018 10:25:59 05/05/2018 12:23:44 General examination of patient 390301633 Z00.01 Essential hypertension 10754988 I10 Lisinopril BIDContinu e Amlodipine Continue HCTZContin ue Hydralazin e Screening for malignant neoplasm of cervix 435756413 Z12.4 Snoring symptoms 2008999 00 R06.83 She had a normal sleep study at in 2015 and she was only prescribed a medication for sleep Anemia 078917179 D64.9 HIV screening 255534797 Z11.4 Impaired f asting glycemia 358172958 R73.01 Nicotine dependence 5629 4008 F17.200 Body mass index 30+ - obesity 359276421 Z68.39 [id number] MD Kevin Becerra (Adult Med) [address] [place] [address] 0 06/01/2018 08:54:40 06/01/2018 10:19:36 Iron deficiency anemia 47864252 D50.9 Iron deficiency anemia. Start oral iron, see eRx. [employer] Benign ess ential hypertension 5235815 I10 On Clonidine 0.1 mg po BIDOn Amlodipine 10 mg po daily Lisinopril 40 mg po BIDContinu e HCTZStart Carvedilol 3.125 BID, side effects were discussed Conjunctivitis 8312421 H 10.9 Influenza vaccination declined 272291677 Z28.21 [id number] MD Kevin Nunes (CORPORATE EXECUTIVE) [address] [place] [address] 0 06/24/2018 13:48:00 06/24/2018 17:04:33 Gynecologic examination 78445686 Z01.419 Age appropriat e counseling done. Venereal d isease screening 852399597 Z11.3 Z20.2 Increased blood pressure 49740827 R03.0 Patient to ER. Abnormal u terine bleeding 5655789460 9100 N93.9 TSH FROM 05/17/18 - NORMAL. counseled about causes, risks of it. offered endometria l biopsy and counseled about procedure. she verbalized understand ing and she agrees for it. she wanted to come back for it. advised to take pain medication like tylenol 1-2 hrs before she come in for endometria l biopsy. Since she say she has HTN counseled about different forms of progestero ne only control like OCPS, Depo Provera, Nexplanon, progestero ne IUD. Patient refused. Patient refused to give urine for test. [id number] MD Kevin Becerra (Adult Med) [address] [place] [address] 0 06/29/2018 11:27:04 06/29/2018 12:43:52 Benign essential hypertension 3242483 I10 Continue,C lonidine 0.1 mg po BIDAmlodip ine 10 mg po daily Lisinopril 40 mg po BIDHCTZ 25 mgIncrease Carvedilol to 6.25 BID, side effects were discussed Influenza vaccination declined 896611056 Z28.21 [id number] MD Kevin Nunes (CORPORATE EXECUTIVE) [address] [place] [address] 0 07/26/2018 10:26:27 07/26/2018 12:44:53 Gynecologic examination 47493897 Z01.419 Atypical s quamous cells of undetermined significance on cervical Papanicolaou smear 392346927 R87.610 Counseled about PAP and HPV. Counseled about safe sex. Since she has recent PAP positive for ADCUS & HPV - offered colposcopy , Possible cervical biopsy, ECC. Counseled about the procedure and its risks including infection, bleeding, damage to internal organs, indicated procedures . Patient verbalized understand ing. Consent signed which is in chart. Refer to procedure note. Advised patient to go to ER if bleeding more than a pad per hour, fever > 100.4, and severe pain. 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 counseled about causes, risks of it. [facility] procedure and its risks including infection, bleeding, damage to internal organs, indicated procedures . Patient verbalized understand ing. Consent signed which is in chart. Since she say she has HTN counseled about different forms of progestero ne only control like OCPS, Depo Provera, Nexplanon, progestero ne IUD. Patient refused. Patient refused to give urine for test. Increased blood pressure 75017771 R03.0 Advised patient to f/u with PCP. Advised patient if symptomati c to go to ER. [id number] MD Kevin Nunes (CORPORATE EXECUTIVE) [address] [place] [address] 08/08/2018 09:36:54 08/08/2018 11:41:27 Gynecologic examination 17837064 Z01.419 Abnormal u terine bleeding 5549066409 9100 N93.9 Since she say she has HTN counseled about different forms of progestero ne only control like OCPS, Depo Provera, Nexplanon, progestero ne IUD. she opted Depo provera. counseled about risks and benefits of it and also return of fertility, effect on bone mineral density. Advised to take calcium and vitamin D. safe sex counseling and advised to use condoms. Patient say she has appointmen t for TVUS. D/W patient EMB result. Cervical intraepithelial neoplasia grade 1 388902818 N87.0 Counseled about it and safe sex. PAP in 06/2019 HPV - Evette n papillomavirus test positive 424859419 R87.619 Safe sex counseling done. Genital he rpes simplex 66195315 A60.9 Counseled about it and safe sex. Advised patient to report out breaks. Increased blood pressure 84023177 R03.0 Patient to ER. [id number] Bijal Rodney [facility] ([facility]) [address] [place] [address] 09/14/2018 11:20:16 09/15/2018 09:27:22 [facility] 3151948 L40.9 [id number] GE[facility]GE Daugherty [facility] (CORPORATE EXECUTIVE) [address] [place] [address] 0 10/17/2018 09:57:39 10/17/2018 17:09:00 Family planning surveillance 866607525 Z30.09 Patient on depo provera. she opted to continue Depo provera. counseled about risks and benefits of it and also return of fertility, effect on bone mineral density. Advised to take calcium and vitamin D. safe sex counseling and advised to use condoms. Cervical intraepithelial neoplasia grade 1 211445670 N87.0 Counseled about it and safe sex. PAP in 06/2019 Genital he rpes simplex 33582738 A60.9 Counseled about it and safe sex. Advised patient to report out breaks. Smoker 45547028 F17.200 Increased blood pressure 50441310 R03.0 Patient to ER. Counseled about risks of elevated BP like cerebral hemorrhage , stroke, . Patient verbalized understand ing. Break-thro ugh bleeding 92749511 N92.1 Counseled thoroughly about it. Advised to take NSAIDS like ibuprofen and naproxen OTC. Patient verbalized understand ing. [id number] GEORGE Elizabeth [facility] (CORPORATE EXECUTIVE) [address] [place] [address] 0 11/04/2018 10:07:40 11/04/2018 11:47:41 Depot contraceptive-no problem 355048873 Z30.42 [id number] [facility] (CORPORATE EXECUTIVE) [address] [place] [address] 0 01/27/2019 11:41:57 01/31/2019 10:42:29 Depot contraceptive-no problem 237635185 Z30.42 [id number] Bijal Zuleika [facility] e FP (STU 104) [address] [place] [address] 02/15/2019 12:16:42 02/16/2019 09:13:27 Psoriasis 2403815 L40.9 vs seborrheic dermatitis (scalp)/vs . lupus to ears [id number] GE[facility] (CORPORATE EXECUTIVE) [address] [place] [address] 0 04/28/2019 11:44:08 05/01/2019 14:23:07 Depot contraceptive-no problem 065653731 Z30.42 [id number] GEORGE Jensen (CORPORATE EXECUTIVE) [address] [place] [address] 6[address]53[address] 0 07/28/2019 14:40:30 07/31/2019 12:40:47 Family planning surveillance 280896401 Z30.09 [id number] MD Kevin Becerra (Adult Med) [address] [place] [address] 0 08/14/2019 14:59:40 08/15/2019 09:31:48 Systolic heart failure 879761468 I50.20 Benign ess ential hypertension 9080299 I10 Continue;A ldactone 12.5 mg po dailyCarve dilol to 6.25 BIDFurosem yolanda 40 mg po daily Change Lisinopril to 40 mg po daily Detailed discussion of the need to be fully compliant with her regimen, follow up appointmen ts and low salt diet. Detailed discussion about the side effects were discussed, including but not limited to angioedema and renal insufficie ncy Influenza vaccination declined 532333116 Z28.21 Discussed Abscess of axilla 246967 01 L02.419 Bactrim/Wa rm packRoberthe may need an I&D Long-term drug therapy 607466452 Z79.899 Impaired f asting glycemia 592820912 R73.01 Renal insufficiency 7231 10575 N28.9 Pneumococc al vaccination declined 208544983 Z28.21 Discussed Obstructiv e sleep apnea syndrome 74229503 G47.33 She has mild LACEY on the previous test done by [facility] [id number] MD Kevin Becerra (Adult Med) [address] [place] [address] 12294[address] 0 08/28/2019 15:40:05 08/28/2019 16:24:37 Benign essential hypertension 7948009 I10 Continue;A ldactone 12.5 mg po dailyLisin opril 40 mg po dailyFuros emide 40 mg po daily Change Carvedilol to 12.5 mg po BID, side effects were discussed in detail. Detailed discussion of the need to be fully compliant with her regimen, follow up appointmen ts and low salt diet. She is aware that our goal is to control and maintain her blood pressure < 130/80. Detailed discussion about the side effects were discussed, including but not limited to dizziness and fatigue. [id number] MD Kevin Becerra (Adult Med) [address] [place] [address] 0 10/09/2019 14:47:49 10/09/2019 15:59:34 Essential hypertension 08270237 I10 Lisinopril is now once a dayContinu e Amlodipine Continue HCTZContin ue Hydralazin eContinue AldactoneC ontinue Carvedilol Headache 41874458 R51 TylenolAvo id NSAIDS [id number] GEORGE Veliz (CORPORATE EXECUTIVE) [address] [place] [address]97[address] 0 10/20/2019 11:20:46 10/23/2019 09:46:07 Family planning surveillance 462297712 Z30.09 [id number] MD Kevin Becerra (Adult Med) [address] [place] [address] 78245[address]944 0 11/20/2019 09:15:26 11/21/2019 08:36:46 Essential hypertension 85070379 I10 Medication reconcilia tion was doneLisino pril is now once a dayContinu e Amlodipine Continue HCTZContin ue Hydralazin eContinue AldactoneC ontinue Carvedilol Eczema 59062925 L30.9 Psoriasis 5961501 L40.9 Long-term drug therapy 355637541 Z79.178 [id number] BENNY LOZADA [facility] (CORPORATE EXECUTIVE) [address] [place] [address] 02896[address] 0 01/24/2020 09:05:18 01/25/2020 09:21:48 Contraception care 119767321 Z30.42 On Depo Provera x 1 year. Other options of contracept aly discussed, pt not interested in switching. Advised Depo contracept ion can increase risk of osteoporos is thus take Ca w/ Vit D supplement ation. RTC every 3 months for injection. Advised does not protect from STD & to use condoms. Pt coming in Thursday 01/25 for injection. Cervical intraepithelial neoplasia grade 1 320968770 N87.0 Pt had colpo 07/2018 with CIN1. Has not had repeat Pap smear since. Will perform Pap at RTC in 3 months. [id number] GEORGE Veliz (CORPORATE EXECUTIVE) [address] [place] [address] 18288[address]566 0 01/26/2020 11:32:02 01/30/2020 07:01:16 Family planning surveillance 564878192 Z30.09 [id number] MD Kevin Becerra (Adult Med) [address] [place] [address] 00719-322 0 03/26/2020 09:39:51 03/27/2020 07:16:58 Eczema 61913070 L30.9 Psoriasis 7737905 L40.9 Spasm 92856049 R25.2 Abscess 644889505 L02.91 History of gallstones 40 1886774 Z87.19 Constipation 79350232 K5 9.00 [id number] MD Kevin Lazo (Adult Med) [address] [place] [address] 89776-379 0 06/11/2020 17:00:53 06/11/2020 17:40:47 Hypertensive heart disease 89384802 I11.0 Advised to stay on low salt diet. Cardiac de fibrillator in situ 533698376 Z95.810 Defibrilla tor in situ [id number] MD Kevin Becerra (Adult Med) [address] [place] [address] 06041-859 0 06/18/2020 13:55:18 06/18/2020 15:29:22 Essential hypertension 35932316 I10 Medication reconcilia tion was doneContin ue Lisinopril , Amlodipine , Chlorthali done, Furosemide , Hydralazin eRestart Aldactone and Carvedilol Heart fail ure with reduced ejection fraction 125490843 I50.9 Her EF is down to 18 % Influenza vaccination declined 199121104 Z28.21 Discussed Pneumococc al vaccination declined 571630052 Z28.21 Discussed Automatic implantable cardiac defibrillator in situ 348800833 Z95.810 Renal insufficiency 7231 78483 N28.9 Long-term drug therapy 288290742 Z79.899 Screening for drug of abuse in urine specimen positive 123421243 R82.5 Discussed in detail, her UDS at [place] was positive for Amphetamin es, Cocaine, Marijuana and Oxycodone. She cannot explain the Cocaine or Amphetamin es and vehemently denies using anything other than Marijuana which she has not used in some time.I have discourage d any recreation al drug use. Noncomplia nce with medication regimen 598357194 Z91.14 She has been out of her Carvedilol and Aldactone for 2 days, i have explained that this does not sunshine well. She could have contacted her pharmacy or left a message at this office, I have made it abundantly clear that she can do better. [id number] [facility] LO[facility]ADA [facility] (CORPORATE EXECUTIVE) [address] [place] [address] 75580[address] 0 10/15/2020 16:20:51 10/30/2020 07:25:17 Family planning surveillance 746524925 Z30.09 35 y/o F with PMHx of CHF, HTN, renal insufficie ncy, BTL wanting to restart Depo. Depo was previously being used to control her heavy bleeding, but she has not had any bleeding since 2019. Advised against Depo and other contracept aly at this time due to comorbidit ies and HFrEF. Pt to contact clinic if AUB returns. RTC in 2 months for Pap. Congestive heart failure 43425698 I50.9 With defibrilla tor. EF down to 18%, follows with PCP/cardio logy. [id number] [facility] (CORPORATE EXECUTIVE) [address] [place] [address] 25080-106 0 01/22/2021 15:11:17 01/31/2021 09:35:42 Contraception care management 387514674 Z30.9 35 y/o F with PMHx of CHF, HTN, renal insufficie ncy, BTL wanting to restart Depo to control menorrhagi a. Advised against Depo and estrogen based contracept aly at this time due to comorbidit ies and HFrEF. Discussed with PCP (Kanika) and ok with starting POPs. Rx Slynd as below. Counseled pt on use and side effects. RTC after menses for Pap. [id number] MD Kevin Becerra [facility] (Adult Med) [address] [place] [address] 76072-264 0 01/23/2021 10:21:05 01/23/2021 11:40:51 Congestive heart failure 80297888 I50.9 Medication monitoring 39 0788187 Z51.81 Impaired f asting glycemia 454512959 R73.01 Renal insufficiency 7231 42124 N28.9 Previously discussed although, she states that she was never made aware Hyperlipid emia screening 038438693 Z13.220 Immunization advised 310 258877 Z71.9 Obstructiv e sleep apnea syndrome 49541625 G47.33 She has mild LACEY on the previous test done by [facility] [id number] Jaylon Lopez MD Kevin (Adult Med) [address] [place] [address] 30193-663 0 02/27/2021 12:46:25 03/03/2021 05:33:17 Major depressive disorder 801219531 F32.9 Hypomagnesemia 394039752 E83.42 Immunization advised 310 613829 Z71.9 Medication review done 408602701 Z76.89 [id number] Jaylon Lopez MD Kevin [facility] (Adult Med) [address] [place] [address] 25261-446 0 10/09/2021 09:45:30 10/10/2021 10:22:08 Headache 61795049 R51.9 Possibly due to her blood pressure Essential hypertension 79423029 I10 A medication reconcilia tion was doneContin ue Amlodipine 10 mg po daily, Chlorthali done 25 mg po daily, Furosemide 40 mg po BID, Hydralazin e 50 mg po BID, Lisinopril 40 mg po daily, Metoprolol ER 100 mg po daily and Aldactone2 5 mg po daily.Labs Cardiology folow up Eczema 53409082 L30.9 Psoriasis 5856496 L40.9 Influenza vaccination declined 093655243 Z28.21 Discussed SARS-CoV-2 mRNA vaccine declined 6596824766 Z28.21 Impaired f asting glycemia 875810991 R73.01 Medication monitoring 39 5898676 Z51.81 Medication review done by doctor 344861830 Z76.89 Disorder o f lipid metabolism 077903709 E78.9 Anemia 148369831 D64.9 [id number] MD Kevin Becerra (Adult Med) [address] [place] [address] 98242-297 0 10/28/2021 10:32:53 10/29/2021 10:50:45 Uncontrolled type 2 diabetes mellitus 359168979 E11.65 Metformin Hypomagnesemia 929164457 E83.42 MgOx Low back pain 418462158 M54.50 Pure hypercholesterolemia 098727545 E78.00 Discussed Congestive heart failure 73748514 I50.9 Statin declined 08491971 0 Z53.20 Pneumococc al vaccination declined 428332562 Z28.21 Discussed Reduced mobility 8977450 Z74.09 The handicappe d placard form was completed Medication review done by doctor 978767839 Z76.89 Influenza vaccination declined 233689749 Z28.21 Discussed [id number] MD Kevin Becerra (Adult Med) [address] [place] [address] 55507-389 0 12/09/2021 15:07:34 12/10/2021 07:49:24 Serum creatinine above reference range 283287683 R79.[address] [facility] r Sleep study was apparently normal, I have requested a copy Low back pain 567088929 M54.50 Her plain xray was normalPT Body mass index 40+ - severely obese 767287276 Z68.43 [id number] Fe Velazquez MD [facility] [address] [place] [address] 12/25/2021 14:30:05 01/12/2022 12:27:49 Type 2 diabetes mellitus without complication 097130226 E11.9 [id number] [address] Flores MD [facility] ([facility]) [address] [place] [address] 01/13/2022 11:13:21 01/16/2022 10:21:36 Chronic kidney disease stage 3 219684566 N18.31 Patient is euvolemic. No volume overload or uremic symptoms. Continue to monitor renal function periodical ly. Cr 1.33 mg/dl and eGFR 58%. Essential hypertension 18015118 I10 Hypertensi on. stable. continue current meds. Congestive heart failure 82686251 I50.9 Patient has CHF with reduced EF s/p AICD. No volume overload. Proteinuria 76577094 R80 .9 will check for proteinuri a. check random protein to creatinine ratio. [id number] MD eKvin Becerra (Adult Med) [address] [place] [address] 33799-509 0 01/27/2022 15:02:12 01/28/2022 10:08:13 Upper abdominal pain 76403081 R10.10 Constipation 45633502 K5 9.00 Cholelithi asis without obstruction 81085113 K80.20 Housing un suited to needs 964311272 Z59.1 Congestive heart failure 21868127 I50.9 [id number] MD Kevin Becerra (Adult Med) [address] [place] [address] 91431-091 0 02/27/2022 15:43:39 03/02/2022 11:35:21 Constipation 84377059 K59.00 OTC Mg Citrate or she can try the [facility] Housing un suited to needs 937309464 Z59.1 In my opinion, she will benefit from a ground floor apartment with two bathrooms Congestive heart failure 66604193 I50.9 Itching of skin 04909500 0 L29.9 Essential hypertension 91479572 I10 A medication reconcilia tion was doneContin ue Amlodipine 10 mg po daily, Chlorthali done 25 mg po daily, Furosemide 40 mg po BID, Hydralazin e 50 mg po BID, Lisinopril 40 mg po daily, Metoprolol ER 200 mg po daily and Aldactone2 5 mg po daily. She feels that her Metoprolol is BID, she was however dispensed #30 on 02/15/2022 Type 2 marcy betes mellitus without complication 510630010 E11.9 Her HBA1C is down to 6.9 (01/27/2022 ) Medication review done by doctor 455662339 Z76.89 [id number] MD Kevin Becerra (Adult Med) [address] [place] [address] 92322-014 0 07/01/2022 15:17:34 07/02/2022 11:37:41 Essential hypertension 67873255 I10 A medication reconcilia tion was doneContin ue Amlodipine 10 mg po daily,, Furosemide 40 mg po BID, Hydralazin e 50 mg po BID, Lisinopril 40 mg po daily, Metoprolol ER 200 mg (Half BID) and Aldactone 25 mg po daily.Rest art Chlorthali done 25 mg po daily.Foll ow up with the cardiologi st. Type 2 marcy betes mellitus without complication 912288840 E11.9 Her HBA1C is down to 6.9 (01/27/2022 ) Medication review done by doctor 099257354 Z76.89 Influenza vaccination declined 822294161 Z28.21 Discussed Acute conjunctivitis 537 32873 H10.32 Non-compli ant behavior 031718341 R46.89 She has been out of her Chlorthali done and she is yet to get her US and labs previously ordered done. [id number] MD Kevin Becerra (Adult Med) [address] [place] [address] 12928-512 0 08/12/2022 15:47:30 08/13/2022 14:45:55 Essential hypertension 74240746 I10 A medication reconcilia tion was done.Uncon trolled on Amlodipine 10 mg po daily, Furosemide 40 mg po BID, Hydralazin e 50 mg po BID, Lisinopril 40 mg po daily, Metoprolol ER 200 mg (Half BID), Aldactone 25 mg po daily and Chlorthali done 25 mg po daily.She was apparently just seen by her cardiologi st. Medication review done by doctor 439475635 Z76.89 Body mass index 40+ - severely obese 790360050 Z68.43 Hepatomegaly 00715925 R1 6.0 Sprain of left ankle 287 9691145 1496367 S93.402A [id number] BENNY LOZAAD (CORPORATE EXECUTIVE) [address] [place] [address] 26896-632 0 08/21/2022 11:11:13 09/03/2022 14:58:17 Gynecologic examination 10470220 Z01.419 Normal gynecologi c exam today.Cerv ical cancer screening: Last Pap 2018 ASCUS/HPV+ (CIN1), updated todayBreas t cancer screening: Reviewed recommenda tions for initiation at age 40 with annual screening. Discussed SBEContrac eption: Slynd OCPsDiet/e xercise: Counseled regarding importance of physical activity, healthy diet and appropriat e calcium intake.RTC in 1yr Contracept ion care management 350990583 Z30.9 Tolerating POPs well, Slynd renewed today. Morbid obesity 991167862 E66.01 BMI 54.8. Recommende d daily exercise with a goal of 150 min/week of moderate-s trenuous activity and a balanced diet with an emphasis on fruits, vegetables , whole grains, legumes, lean protein, and mono/polyu nsaturated fats. Venereal d isease screening 760686640 Z11.3 Routine screening, treat as needed. Safe sex practices discussed. Essential hypertension 13605364 I10 BP elevated today. Pt states cardiologi st and PCP are aware and making med adjustment s. [id number] B[facility]NY LOZADA [facility] (CORPORATE EXECUTIVE) [address] [place] [address] 68091-742 0 09/29/2022 09:04:43 10/08/2022 10:40:04 Abnormal uterine bleeding 9069078481 9100 N93.9 Patient reports persistent bleeding x 2 weeks since restarting Slynd on 09/04/2022 after being off of it for 2 months. Was on Slynd 2 years prior without issue. Counseled patient that irregular bleeding can occur in the first few months after starting control, and irregular bleeding is more common with progestin only methods. Reassured patient that bleeding should slow down with consistent use. Advised patient to skip placebo pills at end of pack and continue with continuous hormone use to decrease bleeding. D/t history of CKD, DM II, and CHF, estrogen containing BC and NSAIDs are contraindi cated. Patient expressed understand ing and is agreeable to expectant management at this time. RTC if AUB persists. [id number] MD Kevin Calder[facility] (CORPORATE EXECUTIVE) [address] [place] [address] 86692-961 0 01/12/2023 11:23:52 02/02/2023 11:08:26 Essential hypertension 21451671 I10 BP elevated today. Pt did not take her antihypert ensives this am. Stressed the importance of taking medication daily. Advised she follow up with PCP. ER precaution s discussed. Menorrhagia [id number] N9 2.0 Patient reports persistent bleeding since being switched from Slynd to Isabel starting in November 2022. Patient states insurance no longer covered Slynd. D/t her PMHx, estrogen containing BCs are contraindi cated. Discussed that we can increase her norethindr one dosage to see if it will stop her abnormal bleeding and if not, there is the option of the Mirena IUD. Pt defers IUD at this time. Return to the office in 3 months to assess symptoms. [id number] MD Kevin Becerra (Adult Med) [address] [place] [address] 02/18/2023 12:44:12 02/19/2023 12:23:40 Upper respiratory infection 48592178 J06.9 Non-compli ant behavior 781639355 R46.89 Type 2 marcy betes mellitus without complication 138765252 E11.9 Her HBA1C is now 7.1 (08/12/2022 ), previously 6.9 (01/27/2022 ) Essential hypertension 44874667 I10 A medication reconcilia tion was done based on her memory.Unc ontrolled on Amlodipine 10 mg po daily, Furosemide 40 mg po BID, Hydralazin e 50 mg po BID (Prescribe d TID), Lisinopril 40 mg po daily, Metoprolol ER 200 mg (One BID), Aldactone 25 mg po daily and Chlorthali done 25 mg po daily. [id number] MD Kevin Calderon (CORPORATE EXECUTIVE) [address] [place] [address] 04/14/2023 12:34:46 04/27/2023 10:22:17 Contraception care 091353951 Z30.41 Patient is tolerating norethindr one well. Will continue as prescribed . RTC in 6 months for WWE/PAP. Essential hypertension 42143532 I10 BP elevated today (140s/100s ). Pt has been uncontroll ed and working with PCP, continue follow up. ER precaution s discussed. Progestin only pills should not have big impact on BP. Morbid obesity 716267950 E66.01 BMI 52.6. Recommende d daily exercise with a goal of 150 min/week of moderate-s trenuous activity and a balanced diet with an emphasis on fruits, vegetables , whole grains, legumes, lean protein, and mono/polyu nsaturated fats. [id number] MD Kevin Becerra (Adult Med) [address] [place] [address] 10/04/2023 13:56:01 10/07/2023 09:39:12 Type 2 diabetes mellitus without complication 078876772 E11.9 Her labs are overdue.He r HBA1C is now 7.1 (08/12/2022 ), previously 6.9 (01/27/2022 ) Obstructiv e sleep apnea syndrome 73791145 G47.33 She has a history of mild LACEY on the previous test done by [facility] Skin tag 232947646 L91.8 Screening mammography of bilateral breasts [id number] 93553 Z12.31 Congestive heart failure 36622411 I50.9 Malaise and fatigue 2717 18867 R53.83 Medication monitoring 39 9243894 Z51.81 Non-compli ant behavior 650162794 R46.89 Administra tion of pneumococcal vaccine 40916263 Z23 Essential hypertension 49796019 I10 Uncontroll ed due to non compliance with her Chlorthali done Medication review done by doctor [id number] Z76.89 A medication reconcilia tion was doneUncont rolled on Furosemide 40 mg po BID, Hydralazin e 50 mg po TID, Lisinopril 40 mg po daily, Metoprolol ER 200 mg (One BID) and Aldactone 25 mg po daily.She has not been compliant with the Chlorthali done 25 mg po daily. [id number] MD Kevin Becerra (Adult Med) [address] [place] [address] 10/29/2023 12:39:05 11/01/2023 16:29:43 Benign essential hypertension 6001287 I10 Uncontroll ed due to non compliance with her full regimenRes tart Lisinopril , side effects including, but not limited to a dry cough and angioedema were discussed. OV 10/04/2023 ontinue;Al dactone 12.5 mg po dailyLisin opril 40 mg po dailyFuros emide 40 mg po daily Change Carvedilol to 12.5 mg po BID, side effects were discussed in detail. Detailed discussion of the need to be fully compliant with her regimen, [facility] and low salt diet. She is aware that our goal is to control and maintain her blood pressure < 130/80. Detailed discussion about the side effects were discussed, including but not limited to dizziness and fatigue. Type 2 marcy betes mellitus without complication 905836659 E11.9 Add Jardiance, side effects including but not limited to candidiasi s, UTIS, dehydratio n and NF were discussed. Pt education on JardianceC ontinue MetforminS tart Rosuvastat in, the indication and the side effects including myalgia were discussed. OV 10/04/2023H er labs are overdue.He r HBA1C is now 7.1 (08/12/2022 ), previously 6.9 (01/27/2022 ) Urine scre ening abnormal 516143386 R82.90 Cocaine +ve, discussed. She denies using Cocaine Medication monitoring 39 0666295 Z51.81 Noncomplia nce with medication regimen 713693175 Z91.920 [id number] Fe Velazquez MD [facility] [address] [place] [address] 11/10/2023 13:57:34 11/12/2023 14:15:23 Type 2 diabetes mellitus without complication 163741976 E11.9 Regular astigmatism 6890 5002 H52.256 [id number] Jaylon Lopez MD [facility] (Adult Med) [address] [place] [address] 11/26/2023 14:09:07 12/01/2023 15:27:31 Benign essential hypertension 2448702 I10 Stable OV 11/10/2023 Uncontroll ed due to non compliance with her full regimenRes tart Lisinopril , side effects including, but not limited to a dry cough and angioedema were discussed. OV 10/04/2023 ontinue;Al dactone 12.5 mg po dailyLisin opril 40 mg po dailyFuros emide 40 mg po daily Change Carvedilol to 12.5 mg po BID, side effects were discussed in detail. Detailed discussion of the need to be fully compliant with her regimen, follow up appointmen ts and low salt diet. She is aware that our goal is to control and maintain her blood pressure < 130/80. Detailed discussion about the side effects were discussed, including but not limited to dizziness and fatigue. Type 2 marcy betes mellitus without complication 051665754 E11.9 Off JardianceL abs OV 11/10/2023 Add Jardiance, side effects including but not limited to candidiasi s, UTIS, dehydratio n and NF were discussed. Pt education on JardianceC ontinue MetforminS tart Rosuvastat in, the indication and the side effects including myalgia were discussed. OV 10/04/2023H er labs are overdue.He r HBA1C is now 7.1 (08/12/2022 ), previously 6.9 (01/27/2022 ) Medication monitoring 39 8294868 Z51.81 Constipation 71425310 K5 9.00 OTC Mg Citrate or she can try the [facility] Renal insufficiency 7231 25616 N28.9 There appears to be an acute worsening of her renal function, the possible causes include medication s (Jardiance , NSAIDS), recent diarrhea and recreation al drug use. Previously discussed although, she states that she was never made aware Cholelithi asis without obstruction 55834197 K80.20 Congestive heart failure 56985605 I50.9 Abdominal pain 73831597 R10.9 [id number] Gregory Franks MD [facility] ([facility]) [address] [place] [address] 11/30/2023 15:30:02 12/01/2023 15:33:16 Chronic kidney disease 779615819 N18.9 has CKD based on past Uncontroll ed type 2 diabetes mellitus 626635670 E11.65 may have DM related CKD Essential hypertension 14582156 I10 BP is low for the situation Cardiomyopathy 56207347 I42.9 may have cardiorena l syndrome Acute kidney injury 1466 9001 N17.9 Not sure of the cause, the hematuria is concerning . May have de shaun glomerulon ephritis [id number] CHARLIE CHUNG MD [facility] (CORPORATE EXECUTIVE) [address] [place] [address] 12/13/2023 11:39:44 01/04/2024 15:29:28 Menorrhagia 359077939 N92.0 Patient has been taking Norethindr one daily with good results for history of menorrhagi a. Needs a refill today. Adult [facility] th examination 218356139 Z00.00 Patient presented today for adult health exam, which included breast exam. Patient is not yet due for pap, most recent was in 2021 and this included cytology and co-testing so next pap is due in 2026. Hidradenit is suppurativa 69643933 L73.2 Patient has skin lesions to bilateral breasts, axillary regions and to medial thigh region adjacent to private area consistent with hidradenit is suppurativ a. Patient has been using Clindamyci n lotion and solution to bilateral axillary regions with good results. Encouraged to use solution to bilateral medial thighs and follow up with PCP. She does not need a refill of the Clindamyci n lotion or solution at this time. [id number] Alexandro Bahena MD [facility] [place] [facility] [address] [place] [address] 12/23/2023 15:39:35 12/24/2023 09:39:30 Essential hypertension 44262181 I10 Pure hypercholesterolemia 428696956 E78.00 Ventricula r tachycardia 03051204 I47.20 Nonischemi c congestive cardiomyopathy 3550752932 04 I42.0 Left atria l enlargement 5206227245 9109 I51.7 Right atri al enlargement 2531134244 9106 I51.7 Aortic mónica ve regurgitation 71350483 I35.1 Pulmonary hypertension 86050469 I27.20 Non-rheuma tic mitral regurgitation 227662165 I34.0 Diastolic dysfunction 35 89573 I51.9 [id number] Alexandro Bahena MD [facility] [place] [facility] [address] [place] [address] 02/29/2024 14:46:39 03/01/2024 17:03:53 Essential hypertension 98094736 I10 Pure hypercholesterolemia 915734581 E78.00 Nonischemi c congestive cardiomyopathy 2060129867 04 I42.0 Ventricula r tachycardia 54141564 I47.20 Left bundl e branch block 31979255 I44.7 Chronic sy stolic heart failure 979709106 I50.22 Aortic mónica ve regurgitation 40638606 I35.1 Non-rheuma tic mitral regurgitation 332196481 I34.0 [id number] Jaylon Lopez MD [facility] (Adult Med) [address] [place] [address] 05/04/2024 14:10:32 05/05/2024 13:03:58 Benign essential hypertension 1760632 I10 Suboptimal , her Hydralazin e is 3/day and not 2/day Type 2 marcy betes mellitus without complication 472244189 E11.9 Labs OV 11/26/2023O ff JardianceL abs OV 11/10/2023 Add Jardiance, side effects including but not limited to candidiasi s, UTIS, dehydratio n and NF were discussed. Pt education on JardianceC ontinue MetforminS tart Rosuvastat in, the indication and the side effects including myalgia were discussed. OV 10/04/2023H er labs are overdue.He r HBA1C is now 7.1 (08/12/2022 ), previously 6.9 (01/27/2022 ) Congestive heart failure 14700307 I50.9 Chronic back pain 954643 002 G89.29 She completed physical therapy on 02/13/2022, her xrays are negative and her back pain persists Neuropathy 050362899 G62 .9 Impaired mobility 223927 05 Z74.09 She will need a PMD to accomplish her ADLS in her home Chronic pain syndrome 37 6768636 G89.4 [id number] Alexandro Bahena MD [facility] [place] [facility] [address] [place] [address] 10/26/2024 11:13:00 10/27/2024 13:12:55 Cardiomyopathy 95221503 I42.9 Automatic implantable cardiac defibrillator in situ 703220101 Z95.810 Aortic mónica ve regurgitation 50903731 I35.1 Chronic sy stolic heart failure 071134441 I50.22 Diastolic dysfunction 35 79318 I51.9 Essential hypertension 46469690 I10 Left bundl e branch block 33167204 I44.7 Nonischemi c congestive cardiomyopathy 1914823596 04 I42.0 [id number] STORMY CORTES MD [facility] (CORPORATE EXECUTIVE) [address] [place] [address] 11/06/2024 11:44:07 11/14/2024 13:33:45 Vaginal discharge 825693545 N89.8 -Intermitt ent brown vaginal discharge present for past month, present when she wipes. Now reports vaginal irritation as well-Lorna rning for possible trichomona s infection vs BV vs secondary to prolonged Norethindr one usage. Patient has history of T2DM (uncontrol led) as well as morbid obesity, which increases risk of PCOS. Discharge may be related to this as well.-Will obtain Nuswab in additional to other STD tests-In the case Nuswab is negative, will obtain pelvic US and instruct patient to take 1 week off of taking Norethindr one to allow bleeding. Menorrhagia 385120943 N9 2.0 Patient has been taking Norethindr one daily with good results for history of menorrhagi a. Needs a refill today. [id number] Roger Pierson MD [facility] [place] [address] [facility] [address] [place] [address] 11/22/2024 10:45:51 11/22/2024 13:25:34 Type 2 diabetes mellitus without complication 350896207 E11.9 condition chronic and at goal dietary management nad order hem a1c Congestive heart failure 92385853 I50.9 conditon chronic and at goal continue the entreso and follow with dr bahena order cbc, cmp Eczema 64982365 L30.9 conditon chronic and not at goal refer to dr english Psoriasis 8800159 L40.9 conditon chronic and not at goal refer to dr english Screening for malignant neoplasm of cervix 722368659 Z12.4 dr bach Screening mammography of bilateral breasts 4368725147 52863 Z12.31 order mammo Morbid obesity 429181174 E66.01 conditon chroinc and not at goal start low fat diet. Essential hypertension 65436167 I10 condition chronic and at goal continue the hydralazin e Impacted c erumen in right ear 6159464887 983234 H61.21 conditon cute clean right ear the right external auditory canal is irrigated iwth normal saline nad a currette is used to remove the cerumen bolus intact Health Concerns Section Related Observation LastModified by Organization Detai ls LastModified Time None Recorded Concern Status LastModified by Organization Details LastModified Time None Recorded Advance Directives Directive N: Payers Encounter Date Sequence Insurance Name Policy Number Policy Maki Covered Member ID Maki Member ID Guarantor Name 02/29/2024 1 [facility] - DOS ON OR AFTER 2020 - DUAL ELIGIBLE (MEDICARE REPLACEMENT/AD VANTAGE - HMO) [id number] Maxine Marquis [id number] Maxine Marquis 05/04/2024 2 [place]ARE OR MEDICARE REPLACEMENT PRIMARY) Maxine Marquis [id number] Maxine Marquis 05/04/2024 1 [facility] (MEDICARE REPLACEMENT/AD VANTAGE - HMO) [id number] Maxine Darlin Marquis [id number] Maxine Marquis 10/26/2024 2 [place] MEDICARE REPLACEMENT PRIMARY) Maxine Marquis [id number] Maxine Marquis 10/26/2024 1 [facility] (MEDICARE REPLACEMENT/AD VANTAGE - HMO) [id number] Maxine Darlin Marquis [id number] Maxine Marquis 11/06/2024 2 [place] OR MEDICARE REPLACEMENT PRIMARY) Maxine Marquis [id number] Maxine Marquis 11/06/2024 1 [facility] (MEDICARE REPLACEMENT/AD VANTAGE - HMO) [id number] Maxine Darlin Marquis [id number] Maxine Marquis 11/22/2024 2 [place] OR MEDICARE REPLACEMENT PRIMARY) Maxine Marquis [id number] Maxine Marquis 11/22/2024 1 [facility] (MEDICARE REPLACEMENT/AD VANTAGE - HMO) [id number] Maxine Saeed Marquis [id number] Maxine Marquis Notes Date Note Type Note Provider Name and Address Organization Details Recorded Time 02/29/2024 text/html Ms. Maxine Marquis is a 38 year old female with year old who returns for follow-up visit. She has tolerating the addition of Entresto 49/51 mg p.o. b.i.d. and in fact her renal function has improved her creatinine is now 1.57 down from 1.9 back in December. She feels like her exercise capacity is improved and is now walking about 20 minutes each day that it is not too hot without any chest pain but can get mild shortness of breath. She denies any defibrillator discharges. She has not been her rosuvatatin since being hospitalized in November due to some abdominal pain which later felt to be due to jardiance and infection. She has been compliant with her medication of late and denies any side effects from her medications. She denies any chest pain, dizziness, syncope, orthopnea, paroxysmal nocturnal dyspnea, palpitations or lower extremity edema. Alexandro Bahena MD Attn: Accounting[address] [place], [address], [facility] - [facility] 02/29/2024 16:00:57 05/04/2024 text/html Back PainReporte d bypatient.Location: pain is not radiating Quality:sharp Severity:worsening; severe (8-10) Duration:chronic Onset/Timing:recurr ent episode; days ago Context:prior back problems Alleviating Factors:relieved by changing position Aggravating Factors:movement/po sitioning Associated Symptoms:no fever; no weak limbs; no numbness of the legs/feet; no tingling; no incontinence; no shortness of breathCHF F/UReported bypatient.Functiona l Capacity:NYHA III (dyspnea climbing < 1 flight stairs) Weight Changes:gain 5lbs Nocturnal Symptoms:orthopnea present;nocturia Dietary Compliance:complies to and understands diet; complies to free water restrictions Aggravating Factors:worse with activity Associated Symptoms:shortness of breath;dyspnea on exertion They said I had to have the face to face I have had physical therapy and.... Because it is hard for me to move around I am also in a lot of pain and they told me to talk to you about pain management I have tingling and cramping, all of them Since her last visit on 11/30/2023:Admitted 12/01/2023-12/05/2023 with JANAY, CRI and H.S.Diagnosed with H. pylori on 12/20/2023 and treated, she is yet to get her test of cure.Following up with cardiology and dermatology. Ms Marquis has had an evaluation by the physical therapist for a power mobility device on 11/23/2023 , I have reviewed the report and I agree with the recommendations. She has CHF and chronic back pain which limit her ability to ambulate. She is right handed and she also has intermittent numbness and tingling in her hands, this can be especially worse when she is sleeping, and this prevents her from using a scooter.When she walks, she has to stop and rest after about 30 feet, as she develops SOB. A power mobility device will her accomplish her ADLs in her home.. She has chronic back pain for which she completed physical therapy on 02/13/2022, Hidradenitis Supparativa and Psoriasis. Her skin lesions hurt and she would like to be referred to pain management. her plain xrays of the LS spine done on 11/06/2021 were negative. Jaylon Lopez MD Attn: Accounting, [address] [place], [address], [facility] - [facility] 05/05/2024 09:01:14 10/26/2024 text/html Ms. Maxine Marquis is a 38 year old female with year old who returns for follow-up visit. She can still get some shortness of breath with doing house work but no chest pain or pressure. She denies any defibrillator discharges and follows with [facility] EP for management of her AICD. She has been compliant with her medication and denies any side effects from her medications. She denies any chest pain, dizziness, syncope, orthopnea, paroxysmal nocturnal dyspnea, palpitations or lower extremity edema. Alexandro Bahena MD Attn: Accounting[address] [place], [address], [place] [facility] 10/26/2024 12:34:42 11/06/2024 text/html Presents today f or vaginal irritation, discharge, and odor. States when she wipes, discharge is brown. Has had it for past few weeks, intermittently. Has also had left flank tenderness intermittently. Uses regular Dove soap, showers every other day. Last had sex about 1 month ago, does not use protection. Has been with same partner for a few years. No concern for any STDs. No abdominal/pelvic pain, no vaginal bleeding. STORMY CORTES MD Attn: Accounting,[address], [place], [address], [place] [facility] 11/08/2024 13:12:41 11/22/2024 text/html presents to the office for initial evaluation. states taht she has chf and is seeing dr bahena. the htn is under control has been watching her diet and the psoriasis and eczema is stable. needs a gyn physician. needs a mammo. has controlled dm Roger Pierson MD Attn: Accounting,[address], [place], [address], [place] [facility] 11/22/2024 13:25:32 OBGyn Episode Ob Episode Information Episode Created Date Number of Fetuses Patient Bloodtype Patient rh Status Prepregnancy Weight lbs Domestic Partner Domestic Partner Phone Father Name Front Desk Host Status 11/14/19 15 1 CLOSED Fetus Data First Name Last Name Admitted to NICU Weight (g) Sex Living Outcome Pediatric Complications Fetus ID Race Codes Race Delivery Type 2748.76 752 F Full Term 87924 Gene Calculation Initial Gene Date Initial Exam Date Initial Exam Provider Initial Ultrasound Date Last Menstrual Period Date Ultra Sound Weeks Gestation 0 Eighteen To Twenty Week Gene Update Ultra Sound Date Fundal Height At Umbil Quickening Date Ultra Sound Latest Weeks Gestation Final Gene Confirmed By Final Gene Confirmed Date Final Gene Date Ultra Sound Latest Days Gestation 0 0 Menstrual History Last Menstrual Date Menses Monthly On Bcp Conception Prior Menses Frequency Hcg Plus Date Menarche Onset Age Delivery Information Delivery Date Delivery Type Labor Anesthesia Weeks Gestation Incision Type Labor Labor Length Hrs Delivered By Post Complications Tubal Sterilization Discharge Date Comments 5 Regional-Sp inal 40 false 4 Discharge Information Feeding Method Contraceptive Method Maternal HG B and HCT Levels Ob Episode Information Episode Created Date Number of Fetuses Patient Bloodtype Patient rh Status Prepregnancy Weight lbs Domestic Partner Domestic Partner Phone Father Name Front Desk Host Status 11/14/19 15 2 CLOSED Fetus Data First Name Last Name Admitted to NICU Weight (g) Sex Living Outcome Pediatric Complications Fetus ID Race Codes Race Delivery Type 1614.78 752 M Prematur e 85984 1900.55 048 F Prematur e 39574 Gene Calculation Initial Gene Date Initial Exam Date Initial Exam Provider Initial Ultrasound Date Last Menstrual Period Date Ultra Sound Weeks Gestation 0 Eighteen To Twenty Week Gene Update Ultra Sound Date Fundal Height At Umbil Quickening Date Ultra Sound Latest Weeks Gestation Final Gene Confirmed By Final Gene Confirmed Date Final Gene Date Ultra Sound Latest Days Gestation 0 0 Menstrual History Last Menstrual Date Menses Monthly On Bcp Conception Prior Menses Frequency Hcg Plus Date Menarche Onset Age Delivery Information Delivery Date Delivery Type Labor Anesthesia Weeks Gestation Incision Type Labor Labor Length Hrs Delivered By Post Complications Tubal Sterilization Discharge Date Comments 3 Regional-Sp inal 28 true 2 Discharge Information Feeding Method Contraceptive Method Maternal HG B and HCT Levels Ob Episode Information Episode Created Date Number of Fetuses Patient Bloodtype Patient rh Status Prepregnancy Weight lbs Domestic Partner Domestic Partner Phone Father Name Front Desk Host Status 11/14/19 15 1 CLOSED Fetus Data First Name Last Name Admitted to NICU Weight (g) Sex Living Outcome Pediatric Complications Fetus ID Race Codes Race Delivery Type 8.37 952 M Prematur e 39412 Vaginal Gene Calculation Initial Gene Date Initial Exam Date Initial Exam Provider Initial Ultrasound Date Last Menstrual Period Date Ultra Sound Weeks Gestation 0 Eighteen To Twenty Week Gene Update Ultra Sound Date Fundal Height At Umbil Quickening Date Ultra Sound Latest Weeks Gestation Final Gene Confirmed By Final Gene Confirmed Date Final Gene Date Ultra Sound Latest Days Gestation 0 0 Menstrual History Last Menstrual Date Menses Monthly On Bcp Conception Prior Menses Frequency Hcg Plus Date Menarche Onset Age Delivery Information Delivery Date Delivery Type Labor Anesthesia Weeks Gestation Incision Type Labor Labor Length Hrs Delivered By Post Complications Tubal Sterilization Discharge Date Comments 2 Regional-Ep idural 32 true 5 Discharge Information Feeding Method Contraceptive Method Maternal HG B and HCT Levels Ob Episode Information Episode Created Date Number of Fetuses Patient Bloodtype Patient rh Status Prepregnancy Weight lbs Domestic Partner Domestic Partner Phone Father Name Front Desk Host Status 11/14/19 15 2 DELETED Gene Calculation Initial Gene Date Initial Exam Date Initial Exam Provider Initial Ultrasound Date Last Menstrual Period Date Ultra Sound Weeks Gestation 0 Eighteen To Twenty Week Gene Update Ultra Sound Date Fundal Height At Umbil Quickening Date Ultra Sound Latest Weeks Gestation Final Gene Confirmed By Final Gene Confirmed Date Final Gene Date Ultra Sound Latest Days Gestation 0 0 Menstrual History Last Menstrual Date Menses Monthly On Bcp Conception Prior Menses Frequency Hcg Plus Date Menarche Onset Age Delivery Information Delivery Date Delivery Type Labor Anesthesia Weeks Gestation Incision Type Labor Labor Length Hrs Delivered By Post Complications Tubal Sterilization Discharge Date Comments 3 Regional-Sp inal 28 true 2 Discharge Information Feeding Method Contraceptive Method Maternal HG B and HCT Levels
--- OUTSIDE RECORDS SUMMARY | 2024-11-27 13:52 | XMS_ITS | Encounter Summary ---
Author Organization [facility] Facility Care Team Providers Care Premium Note Interest Calculator Clerk Name Role Phone Jaylon Boudreaux MD Primary Care Provider No, Physician Primary Care Provider [phone] Jaylon Boudreaux MD Unavailable [phone] Jaylon Boudreaux MD Primary Care Provider Encounter Details Date Type Department Care Team (Latest Contact Info) Description 04/13/2016 Orders Only [facility] CLINCONV ProviderLara MD [address] [place] [id number] Social History Tobacco Use Types Packs/Day Years Used Date Smoking Tobacco: Never Assessed Comments Unknown Sex and Gender Information Value Date Recorded Sex Assigned at Not on file Legal 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 Historical Provider [facility] Final Result * CARDIOLOGY REPORT (04/17/2016 12:00 AM CDT) Anatomical Region Laterality Modality Other Narrative 04/17/2016 12:00 AM CDT Ordered by an unspecified provider. us Historical Provider [facility] GALLOW[facility] Final Result documented in this encounter Visit Diagnoses Not on filedocumented in this encounter Additional Health Concerns Infection Onset Date Last Indicated Resolved Time COVID: Suspected 01/15/2021 01/15/2021 01/15/2021 6:24 PM CDT COVID: Suspected 02/19/2023 02/19/2023 02/19/2023 8:14 PM CDT documented as of this encounter Care Teams Premium Note Interest Calculator Clerk Relationship Specialty Start Date End Date Jaylon Boudreaux MD [address] [place] [id number] PCP - General 08/04/19 01/29/20 No, Physician PCP - General 01/30/20 02/27/20 Jaylon Boudreaux MD [address] [place] [id number] PCP - General 02/28/20 Jaylon Boudreaux MD [address] [place] [id number] 01/30/20 documented as of this encounter
--- OUTSIDE RECORDS SUMMARY | 2024-11-27 13:52 | XMS_ITS | Clinical Summary ---
Author Organization [facility] Address [address] [place] [address] Care Team Providers Care End Stapler Name Role Phone Jaylon Boudreaux MD Primary Care Provider Source Comments [facility],non-owned Affiliates and Associated Physician Practices is amultiple site organization consisting of ambulatory clinics and hospital sitesin [place], [place], [place] and [place]. This disclosure is being madepursuant to the Care Everywhere program and may not contain all information available regarding this patient. Last updated 18.[facility] Allergies No known active allergies Medications * Be aware that medications may not be up to date on this document. Alwaysverify current medications with the patient. Medication Sig Dispensed Refills Start Date End Date Status amLODIPine (NORVASC) 10 MG tablet Take 10 mg by mouth once daily 04/02/2019 Active betamethasone dipropionate (DIPROSONE) 0.05 % ointment betamethasone dipropionate 0.05 % topical ointment Active cyclobenzaprine (FLEXERIL) 10 MG tablet Take 10 mg by mouth once daily Active furosemide (LASIX) 40 MG tablet Take 40 mg by mouth 2 times daily 09/28/2019 Active lisinopril (PRINIVIL; ZESTRIL) 40 MG tablet Take 40 mg by mouth once daily 09/14/2019 Active spironolactone (ALDACTONE) 25 MG tablet Take 25 mg by mouth once daily 09/28/2019 Active isosorbide mononitrate CR 24hr (IMDUR) 30 MG tablet Take 1 (one) tablet by mouth once daily 30 tablet 3 09/29/2021 Active chlorthalidone (HYGROTON) 25 MG tablet Take 1 (one) tablet by mouth once daily 30 tablet 3 09/28/2021 Active carvedilol (COREG) 25 MG tablet Take 1.5 (one and one-half) tablets by mouth 2 times daily 90 tablet 3 09/28/2021 Active hydrALAZINE (APRESOLINE) 50 MG tablet Take 1 (one) tablet by mouth 2 times daily 60 tablet 3 09/28/2021 Active Active Problems Problem Noted Date Diagnosed Date V-tach 09/28/2021 AICD discharge 09/28/2021 Family History Medical History Relation Name Comments Congenital Heart defect Father Relation Name Status Comments Father Social History Tobacco Use Types Packs/Day Years Used Date Smoking Tobacco: Every Day Smokeless Tobacco: Never Alcohol Use Standard Drinks/Week Comments Yes 0 (1 standard drink = 0.6 oz pur e alcohol) AUDIT-C Answer Date Recorded Q1: How often do you have a drink containing alc ohol? Never 09/28/2021 Average Number of Drinks Not on file 022 Frequency of Binge Drinking Not on file 09/07 Sex and Gender Information Value Date Recorded Sex Assigned at Not on file Gender Identity Not on file Sexual Orientation Not on file Last Filed Vital Signs Vital Sign Reading Time Taken Comments Blood Pressure 160/89 09/28/2021 3:49 PM HAUNTED HISTORY TOUR GUIDE Pulse 84 09/28/2021 3:49 PM HAUNTED HISTORY TOUR GUIDE Temperature 37.1 C (98.7 F) 09/28/2021 2:09 AM HAUNTED HISTORY TOUR GUIDE Respiratory Rate 15 09/28/2021 3:49 PM HAUNTED HISTORY TOUR GUIDE Oxygen Saturation 94% 09/28/2021 3:49 PM HAUNTED HISTORY TOUR GUIDE Inhaled Oxygen Concentration - - Weight 136.1 kg (300 lb) 09/28/2021 2:09 AM HAUNTED HISTORY TOUR GUIDE Height 170.2 cm (5' 7 ) 09/28/2021 2:09 AM HAUNTED HISTORY TOUR GUIDE Body Mass Index 46.99 09/28/2021 2:09 AM HAUNTED HISTORY TOUR GUIDE Plan of Treatment Health Maintenance Due Date Last Done Comments LIPID TESTING 1983 MAMMOGRAM 1983 PAP SMEAR 1983 HIV SCREENING 1998 HEPATITIS C SCREENING 08/27/2001 DTAP/TDAP/TD VACCINES (1 - Tdap) 2002 HEPATITIS B VACCINE (1 of 3 - 19+ 3-dose series) 2002 COVID-19 VACCINE (1 - 2023-2 5 season) 2024 INFLUENZA VACCINE (#1) 2024 DEPRESSION SCREENING 09/06/2024 ZOSTER VACCINE (1 of 2) 2033 HIB VACCINE Aged Out No longer eligi ble based on patient's age to complete this topic HPV VACCINE Aged Out No longer eligi ble based on patient's age to complete this topic MENINGOCOCCAL (Group B) VACC INE SHARED DECISION-MAKING Aged Out No longer eligibl e based on patient's age to complete this topic MENINGOCOCCAL GROUPS A/C/Y/W VACCINE Aged Out No longer eligible b ased on patient's age to complete this topic PNEUMOCOCCAL VACCINE Aged Out No long er eligible based on patient's age to complete this topic Advance Directives * Full Code (Latest Code Status on File) Date Activated Date Inactivated Comments 09/28/2021 5:08 AM 09/28/2021 5:52 PM Care Teams End Stapler Relationship Specialty Start Date End Date Jaylon Boudreaux MD [address] [place], [place] [id number] PCP - General 08/08/18
--- OUTSIDE RECORDS SUMMARY | 2024-11-27 13:52 | XMS_ITS | Encounter Summary ---
Author Organization [facility] Facility Care Team Providers Care Petroleum Engineering Professor Name Role Phone Jaylon Boudreaux MD Primary Care Provider No, Physician Primary Care Provider [phone] Jaylon Boudreaux MD Unavailable [phone] Jaylon Boudreaux MD Primary Care Provider Encounter Details Date Type Department Care Team (Latest Contact Info) Description 11/14/2014 Orders Only [facility] CLINCONV ProviderLara MD [address] [place] [id number] Social History Tobacco Use Types Packs/Day Years Used Date Smoking Tobacco: Never Assessed Comments Unknown Sex and Gender Information Value Date Recorded Sex Assigned at Not on file 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 Historical Provider Final Res ult * CARDIOLOGY REPORT (07/08/2016 12:00 AM CDT) [...] documented as of this encounter Care Teams Petroleum Engineering Professor Relationship Specialty [place] [address] [place] [id number] PCP - General 08/04/19 01/29/20 No, Physician PCP - General 01/30/20 02/27/20 [place] [address] [place] [id number] PCP - General 02/28/20 [place] [address] [place] [id number] 01/30/20 documented as of this encounter
--- OUTSIDE RECORDS SUMMARY | 2024-11-27 13:52 | XMS_ITS | CONTINUITY OF CARE DOCUMENT ---
Author Name iker dong Address Unknown Organization [facility] Address [address] [place] [address] Phone [phone] Care Team Providers Care Earth Boring Machine Operator Name Role Phone Gerardo KIRBY, Mohammad Unavailable REGI LOPEZ MD Unavailable REGI LOPEZ MD Unavailable [phone] PROBLEMS Condition Status Date Provider Notes Hypertension active Mark Medina MD Tobacco abuse active Mark Medina MD ENCOUNTERS Date Type Provider Location Encounter Diag nosis - In-person encounter Office Visit Edison Eaton MD [place] [facility] - In-person encounter Office Visit Mark Medina MD [place] [facility] HypertensionTobacco abuse VITAL SIGNS Date Observation Value Provider Body Mass Index (Ratio) 46.16 kg/m2 Duke Eaton MD blood pressure, diastolic 130 mm[Hg] Darryl Rodríguez'Saud blood pressure, systolic 220 mm[Hg] Dulce he O'Saud oxygen saturation, oximetry 98 % Lien O'Saud respiratory rate E&M 16 /min Lien O'Saud pulse rate 94 /min Lien O'Saud weight E&M 286 [lb_av] Lien O'Saud blood pressure, resting Yes Urbanna conklin O'Saud height E&M 66 [in_i] Lien O'Saud Body Mass Index (Ratio) 45.03 kg/m2 Linda Medina MD blood pressure, diastolic 122 mm[Hg] Da andrew Messi blood pressure, systolic 206 mm[Hg] Dac ia Messi oxygen saturation, oximetry 99 % Henna Messi respiratory rate E&M 16 /min Henna V oss pulse rate 81 /min Henna Messi weight E&M 279 [lb_av] Henna Messi height E&M 66 [in_i] Henna Messi ALLERGIES No Known Drug Allergies HISTORY OF MEDICATION USE Medication Status Instructions Dates Provider Indications Com ments ALDACTONE 25 MG ORAL TABLET active ONE TAB DAILY Amanda Arreola NP LISINOPRIL 40 MG ORAL TABLET active take one twice daily Henna Messi HYDROCHLOROTHIAZIDE 25 MG ORAL TABLET active take one daily Henna Messi [facility] IR[facility] 325 (65 FE) MG ORAL TABLET active take onethree times daily Henna Messi CATAPRES 0.1 MG ORAL TABLET active one tab three times daily Amanda Arreola NP AMLODIPINE BESYLATE 10 MG ORAL TABLET active take one at bedtime Henna Messi CARVEDILOL 6.25 MG ORAL TABLET active take one twice daily Henna Messi SOCIAL HISTORY Date Observation Value Provider number of grandchildren Evelina Arreola NP alcohol use, average drinks per day social Lien Rodríguez'Saud smoking/tobacco cess ation, patient education and counseling yes Lien Rodríguez'Saud alcohol use yes Lien Rodríguez'Saud number of years as a smoker 15 a Lien Rodríguez'Saud smoking history, tot al pack/day 1/3 Lien Rodríguez'Saud cigarette use yes Lien Rodríguez'Saud smoking status Current every day smoker M wyatt Aragon social history reviewed E&M revi ewed - no changes required Mark Medina MD social history E&M S moking History: P atcoreen currently smokes every day. P atient has been counseled to quit. Mark Medina MD smoking/tobacco cess ation, patient education and counseling yes Mark Medina MD number of grandchildren Mark Medina MD U magda Medina MD alcohol use, average drinks per day social [facility] alcohol use yes Henna Creighton number of years as a smoker [address] [facility] smoking history, tot al pack/day 1/ [facility] cigarette use yes [facility] smoking status Current every day smoker D acia Creighton FAMILY HISTORY Family Member Condition Paternal Grandmother Family History of C ongestive Heart Failure: Maternal Grandmother Family History of C oronary Artery Disease: INSURANCE PROVIDERS Payer name Policy type / Coverage type [facility] republican [place] [employer] [employer] (2) Medicaid [id number] ADVANCE DIRECTIVES Name Date DISCUSSED - NO DECISION MADE TREATMENT PLAN Date Name Performer Cardiology:Cessation encouraged. Amanda Arreola NP Cardiology:Uncontrol led. Add Aldactone 25mg daily. Increase Clonidine to TID. Amanda Arreola ENGINE SPECIALIST Cardiology New Patie nt:The Patient was reencouraged to stop smoking. Mark Medina MD Cardiology New Patient:Uncontrol led. Mark Medina MD Date Name Ambulatory BP Renal Artery Duplex Complete Echo HISTORY OF PROCEDURES Procedure Date Procedure Name Provider Procedure Notes S tatus EKG Evelina Carrillo MD complet ed EKG Mark Medina MD completed
--- OUTSIDE RECORDS SUMMARY | 2024-11-27 13:53 | XMS_ITS | Encounter Summary ---
Author Organization [facility] Facility Care Team Providers Care Production Leader Name Role Phone Jaylon Boudreaux MD Primary Care Provider No, Physician Primary Care Provider [phone] Jaylon Boudreaux MD Unavailable [phone] Jaylon Boudreaux MD Primary Care Provider Encounter Details Date Type Department Care Team (Latest Contact Info) Description 11/13/2014 Orders Only [facility] CLINCONV ProviderLara MD [address] [place] [address] Social History Tobacco Use Types Packs/Day Years Used Date Smoking Tobacco: Never Assessed Comments Unknown Sex and Gender Information Value Date Recorded Sex Assigned at Not on file 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 us Historical Provider Final Res ult documented in this encounter Visit Diagnoses Not on filedocumented in this encounter Additional Health Concerns Infection Onset Date Last Indicated Resolved Time COVID: Suspected 01/15/2021 01/15/2021 01/15/2021 6:24 PM CDT COVID: Suspected 02/19/2023 02/19/2023 02/19/2023 8:14 PM CDT documented as of this encounter Care Teams Production Leader Relationship Specialty Start [place] [address] [place] [id number] PCP - General 08/04/19 01/29/20 No, Physician PCP - General 01/30/20 02/27/20 [place] [address] [place] [id number] PCP - General 02/28/20 [place] [address] [place] [phone] 01/30/20 documented as of this encounter
--- NOTE | 2024-11-27 14:00 | NEURO_ITS ---
Impression: # Complains of numbness of hands. Non-diabetic. ? # Bilateral Carpal Tunnel Syndrome, right more than left. ? # Right ulnar neuropathy across the elbow. ? # Abnormal needle/EMG exam. Nerve Conduction Studies Anti Sensory Summary Table ?Stim Site NR Peak (ms) P-T Amp (?V) Site1 Site2 Delta-P (ms) Dist (cm) Roland (m/s) Left Median Anti Sensory (2-3nd Digit) Wrist ? 3.8 48.6 Wrist 2-3nd Digit 3.8 14.0 37 Wrist ? 3.7 43.4 Wrist 2-3nd Digit 3.8 14.0 37 Right Median Anti Sensory (2-3nd Digit) Wrist ? 4.3 41.7 Wrist 2-3nd Digit 4.3 14.0 33 Wrist ? 4.4 34.7 Wrist 2-3nd Digit 4.3 14.0 33 Left Radial Anti Sensory (Base 1st Digit) Wrist ? 2.7 11.1 Wrist Base 1st Digit 2.7 0.0 Right Radial Anti Sensory (Base 1st Digit) Wrist ? 1.8 37.8 Wrist Base 1st Digit 1.8 0.0 Left Ulnar Anti Sensory (5th Digit) Wrist ? 2.9 50.6 Wrist 5th Digit 2.9 14.0 48 Right Ulnar Anti Sensory (5th Digit) Wrist ? 3.0 17.7 Wrist 5th Digit 3.0 14.0 47 Motor Summary Table ?Stim Site NR Onset (ms) O-P Amp (mV) Site1 Site2 Delta-0 (ms) Dist (cm) Roland (m/s) Left Median Motor (Abd Poll Brev) Wrist ? 4.1 3.4 Elbow Wrist 5.4 29.0 54 Elbow ? 9.5 1.7 Right Median Motor (Abd Poll Brev) Wrist ? 5.2 5.7 Elbow Wrist 4.7 28.0 60 Elbow ? 9.9 6.0 Left Ulnar Motor (Abd Dig Minimi) Wrist ? 2.3 6.8 A Elbow Wrist 5.7 32.0 56 A Elbow ? 8.0 1.6 Right Ulnar Motor (Abd Dig Minimi) Wrist ? 2.5 7.2 A Elbow Wrist 8.7 30.0 34 A Elbow ? 11.2 5.9 B Elbow Wrist 4.5 22.0 49 B Elbow ? 7.0 2.1 F Wave Studies ?NR F-Lat (ms) L-R F-Lat (ms) Left Median (Mrkrs) (Abd Poll Brev) ? 31.74 0.29 Right Median (Mrkrs) (Abd Poll Brev) ? 31.45 0.29 Left Ulnar (Mrkrs) (Abd Dig Min) ? 32.09 0.15 Right Ulnar (Mrkrs) (Abd Dig Min) ? 31.94 0.15 EMG ?Side Muscle Nerve Root Ins Act Fibs Amp Dur Recrt Comment Right 1stDorInt Ulnar C8-T1 Nml Nml Incr >12ms +1 Right Ext Indicis Radial (Post Int) C7-8 Nml Nml Nml Nml Nml Right Ext Digitorum Radial (Post Int) C7-8 Nml Nml Nml Nml Nml Right BrachioRad Radial C5-6 Nml Nml Nml Nml Nml Right PronatorTeres Median C6-7 Nml Nml Nml Nml Nml Right Abd Poll Brev Median C8-T1 Nml Nml Incr >12ms +1 Right ABD Dig Min Ulnar C8-T1 Nml Nml Incr >12ms +1 Left 1stDorInt Ulnar C8-T1 Nml Nml Nml Nml Nml Left Ext Indicis Radial (Post Int) C7-8 Nml Nml Nml Nml Nml Left Ext Digitorum Radial (Post Int) C7-8 Nml Nml Nml Nml Nml Left BrachioRad Radial C5-6 Nml Nml Nml Nml Nml Left PronatorTeres Median C6-7 Nml Nml Nml Nml Nml Left Abd Poll Brev Median C8-T1 Nml Nml Nml Nml Nml Left ABD Dig Min Ulnar C8-T1 Nml Nml Nml Nml Nml MTDD
== END 2024-11-27 11:53 | disposition home or self-care (01) ==
LOC: ANHNEURO 11:54
PROVIDERS: Visit Provider Internal Medicine Infectious Disease
DX: G56.03 Carpal tunnel syndrome, bilateral upper limbs (principal); G56.22 Lesion of ulnar nerve, left upper limb
CPT/HCPCS: 95886; 95911